=== PATIENT | male | born 1940 | race Caucasian/White ===

== ENCOUNTER 2017-02-13 02:11 | Inpatient (IN) | payer OTHER, MEDICARE ==
[~2017-02-13] VITALS: Ht 170.2 cm; Wt 91.3 kg
[2017-02-13 03:17] VITALS: BP_SYST 126; BP_SYST 162; BP_DIAS 101; BP_DIAS 91; PULSE 83; TEMP 36.3; O2SAT 95; Ht 170.2 cm; Wt 91.3 kg
[2017-02-13] MEDS ORDERED: OLME40TA30 PO (03:24)
[2017-02-13] MEDS ORDERED: MAGNESIUM HYDROXIDE SUSP 30 ML UDC PO PRN (04:00)
[2017-02-13] MEDS ORDERED: ALUMINUM/MAGNESIUM/SIMETH (MAALOX MAX) 30 ML UDC PO PRN (04:00)
[2017-02-13] MEDS ORDERED: POLYETHYLENE (MIRALAX) 17 GM PACK PO PRN (04:00)
[2017-02-13] MEDS ORDERED: ONDANSETRON INJ 2 MG/ML 2 ML VIAL IV PRN (04:00)
[2017-02-13] MEDS ORDERED: ZOLPIDEM TARTRATE 5 MG TAB PO PRN (04:00)
[2017-02-13] MEDS ORDERED: MoRPHine SULFATE 2 MG/ML CARP IV PRN (04:00)
[2017-02-13] MEDS ORDERED: ACETAMINOPHEN 325 MG TAB PO PRN (04:00)
[2017-02-13] MEDS ORDERED: NITROGLYCERIN 0.4 MG SL PER TAB CHARGE SL PRN (04:00)
[2017-02-13] MEDS ORDERED: ALBUTEROL 0.083% NEBU SOLN 3 ML VIAL INH PRN (04:15)
--- NOTE | 2017-02-13 04:39 | History and Physical ---
History & Physical Date & Time of Service: Feb 13, 2017 at 04:14 Chief Complaint: Acute Sob,Elevated Troponin Primary Care Physician: Eliot Alves History of Present Illness Source: patient 76 y/o M Hx HTN, CKD 3, PE 9 months prior - treated with Xarelto for 6 mo. Pt presented to [facility] for progressive SOB. He had URI symptoms this week including a cough and then developed acutely worse SOB. He denies CP, N/V , palpitations or lightheadedness. Earlier in the day he had blood streaked sputum. Initial labs obtained at [place] reveled an elevated troponin. The pt was slated to be transferred to [place] for evaluation by a production supv however his insisted that he come to [facility]. Although a PE is certainly in the differential, the pts suffers from CKD and a CTA was not obtained. The pt received full-dose Lovenox at [facility]. His hemoptysis appears to have resolved regardless. Past Medical/Surgical History 1) DVT/PE 06/24 - this was attributed to a combination of a procedure performed on his R knee and a subsequent flight to [place]. 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 CKD is likely stage 3 although we do not have a baseline creatinine. 3) HTN Family History Father with Hx of CABG at age 70 and VT at 86 Social History Smoking Status: Never Smoker Alcohol Use: socially (Wine) Allergies Coded Allergies: Coffee (Verified Allergy, Unknown, SHORTNESS OF BREATH, 02/13/17) nasal congestion Home Medications Scheduled Olmesartan/Hctz (Benicar Hct 40/12.5), 1 TAB PO DAILY Review of Systems Constitutional: No fever, No chills, No sweats Eyes: No worsening of vision, No eye pain ENT: No hearing loss, No unusual epistaxis, No nasal symptoms Respiratory: + cough, + sputum, + shortness of breath, + dyspnea on exertion, + dyspnea at rest, No wheezing Cardiovascular: No chest pain, No orthopnea, No PND Abdomen: No pain, No nausea, No vomiting Musculoskeletal: No joint pain Genitourinary - Male: No hematuria, No dysuria, No urinary frequency, No urinary urgency Neurologic: No memory loss, No paralysis, No weakness Psychiatric: No depression symptoms Endocrine: No fatigue Hematologic / Lymphatic: No abnormal bleeding/bruising Integumentary: No rash Allergic / Immunologic: No environmental allergies Physical Exam Vital Signs Date Time Temp Pulse Resp B/P (MAP) Pulse Ox O2 Delivery O2 Flow Rate FiO2 02/13/17 03:17 36.3 83 18 126/91 95 Nasal Cannula 3.0 General Appearance: WD/WN, no apparent distress Head: normocephalic Eyes: normal inspection, PERRL, EOMI ENT: normal ENT inspection, pharynx normal Neck: supple, no JVD Respiratory/Chest: chest non-tender, lungs clear, normal breath sounds Cardiovascular: regular rate, rhythm, no edema, no gallop, no JVD, no murmur, normal peripheral pulses Abdomen/GI: normal bowel sounds, non tender Back: normal inspection, no CVA tenderness Extremities/Musculoskelatal: normal inspection, no calf tenderness, normal capillary refill, no pedal edema, normal range of motion 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 Pt presented to [facility] for progressive SOB. He had URI symptoms this week including a cough and then developed acutely worse SOB. He denies CP, N/V , palpitations or lightheadedness. Earlier in the day he had blood streaked sputum. Initial labs obtained at [facility] reveled an elevated troponin. The pt was slated to be transferred to [place] for evaluation by a production supv however his insisted that he come to [facility]. Although a PE is certainly in the differential, the pts suffers from CKD and a CTA was not obtained. The pt received full-dose Lovenox at [facility]. His hemoptysis appears to have resolved regardless. 1) SOB - elevated troponin - Differential includes PE vs NSTEMI - pt placed on full-dose Lovenox, ASA, statin and echo ordered to evaluate for strain or wall motion abnormalities. We have additionally ordered a VQ scan. His renal function is such that a CTA could be obtained if it is positively needed. 2) HTN - cont HCTZ/Benicar 3) Hemoptysis - supports diagnosis of PE - resolved earlier in day - consider pulm consult with recurrence. Full code - full dose Lovenox Total time for this admit including review of labs, meds, EKG - discussion with pt and ER attending at [facility] - 38 min Level of Care Telemetry Advanced Directives Existing Living Will: No Existing Power of Account Relationship Manager: No Resuscitation Status FULL RESUSCITATION VTE Prophylaxis VTE Risk Assessment Done? Y/N: Yes Risk Level: High Given or contraindicated: Enoxaparin (Lovenox)SQ
[2017-02-13] MEDS ORDERED: D5NSS + 20MEQ KCL 1,000 ML IV SCH (05:15)
[2017-02-13 06:36] LABS: HEMATOCRIT 41.2 % (42-52); MEAN CELL VOLUME 90.5 fL (80-100); MEAN CORPUSCULAR HEMOGLOBIN 31.2 pg (25-34); MEAN CORPUSCULAR HGB CONC 34.5 g/dl (32-36); MEAN PLATELET VOLUME 9.3 fL (7.4-10.4); PLATELET COUNT 169 K/uL (130-400); RED BLOOD COUNT 4.55 M/uL (4.7-6.1); WHITE BLOOD COUNT 9.71 K/uL (4.8-10.8)
[2017-02-13 06:51] LABS: INR 1.1 (0.9-1.1); PROTHROMBIN TIME (PATIENT) 12.1 SECONDS (9.0-12.0)
[2017-02-13 07:18] LABS: BUN/CREATININE RATIO 19.1 (10-20); CREATININE 1.4 mg/dl (0.60-1.40); POTASSIUM 3.5 mmol/L (3.5-5.1)
[2017-02-13 08:00] VITALS: BP 141/89; PULSE 72; TEMP 36.7; TEMP 37.7; O2SAT 95
[2017-02-13] MEDS: ASPIRIN 81 MG ECTAB PO SCH (08:04)
[2017-02-13] MEDS: ATORVASTATIN 40 MG TAB PO SCH (08:05)
[2017-02-13] MEDS: OLMESARTAN MEDOXOMIL 20 MG TAB PO SCH (08:05)
[2017-02-13] MEDS: HYDROCHLOROTHIAZIDE 25 MG TAB PO SCH (08:05)
[2017-02-13] MEDS ORDERED: HEPARIN IV LOW DOSE NO BOLUS SCH (08:30)
[2017-02-13 09:02] LABS: HEMATOCRIT 40.4 % (42-52); MEAN CORPUSCULAR HEMOGLOBIN 30.8 pg (25-34); MEAN PLATELET VOLUME 9.3 fL (7.4-10.4); PLATELET COUNT 154 K/uL (130-400); RED BLOOD COUNT 4.39 M/uL (4.7-6.1); WHITE BLOOD COUNT 8.54 K/uL (4.8-10.8)
[2017-02-13 09:15] LABS: INR 1.1 (0.9-1.1); PARTIAL THROMBOPLASTIN RATIO 1.2; PROTHROMBIN TIME (PATIENT) 11.9 SECONDS (9.0-12.0)
[2017-02-13 09:27] LABS: MEAN CORPUSCULAR HGB CONC 33.4 g/dl (32-36)
[2017-02-13] MEDS ORDERED: ENOXAPARIN 1 MG/KG SQ SCH (10:00)
[2017-02-13 12:00] VITALS: BP 157/89; PULSE 80; TEMP 36.7; O2SAT 92
[2017-02-13] MEDS ORDERED: ENOXAPARIN 100 MG/1ML SYR SQ SCH (12:00)
[2017-02-13] MEDS ORDERED: HEPARIN 25,000 UNIT/500ML D5W 500 ML IV PRN (12:00)
--- NOTE | 2017-02-13 13:42 | Progress Note ---
Subjective Date of Service: Feb 13, 2017. Subjective Pt evaluation today including: conversation w/ patient, conversation w/ family , physical exam, chart review, lab review, review of studies, conversation w/ tour consultant, review of inpatient medication list cough with yellow/white sputum, some times was red,, cough/wheezing when deep breathing, denies chest pain Review of Systems Constitutional: No fever, No chills, No sweats, No weight loss, No weakness, No fatigue, No problem reported Eyes: No worsening of vision, No eye pain, No redness, No discharge, No diplopia ENT: No hearing loss, No unusual epistaxis, No nasal symptoms, No sore throat, No tinnitus, No dental problems, No trouble swallowing Respiratory: + cough, + shortness of breath, + dyspnea on exertion, No sputum, No wheezing, No dyspnea at rest, No hemoptysis Cardiac: No chest pain, No orthopnea, No PND, No edema, No claudication, No palpitations Abdomen: No pain, No nausea, No vomiting, No diarrhea, No constipation Musculoskeletal: No joint pain, No muscle pain, No swelling, No calf pain Male : No dysuria, No urinary frequency, No incontinence, No nocturia more than once/night, No slowing stream, No hematuria Neurologic: No memory loss, No paralysis, No weakness, No numbness/tingling, No vertigo, No balance problems Psychiatric: No depression symptoms, No anhedonism, No anxiety, No insomnia, No substance abuse Heme: No abnormal bleeding/bruising, No clotting problems, No swollen lymph nodes, No night sweats Endo: No fatigue, No excessive thirst, No excessive urination Skin: No rash, No itch, No new/changing skin lesions, No color change, No bleeding Objective Vital Signs Date Time Temp Pulse Resp B/P (MAP) Pulse Ox O2 Delivery O2 Flow Rate FiO2 02/13/17 04:00 Nasal Cannula 4.0 02/13/17 03:17 36.3 83 18 126/91 95 Nasal Cannula 3.0 Physical Exam General Appearance: WD/WN, no apparent distress Eyes: normal inspection, PERRL, EOMI, sclerae normal ENT: normal ENT inspection, hearing grossly normal, pharynx normal Neck: supple, no adenopathy, thyroid normal, no JVD, no carotid bruits, trachea midline Respiratory/Chest: chest non-tender, lungs clear, normal breath sounds, no respiratory distress, no accessory muscle use, + decreased breath sounds, + rales, + wheezing Cardiovascular: regular rate, rhythm, no edema, no gallop, no JVD, no murmur Abdomen: normal bowel sounds, non tender, soft, no organomegaly, no pulsatile mass Extremities: normal range of motion, non-tender, normal inspection, no pedal edema, no calf tenderness, normal capillary refill, pelvis stable Neurologic/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: 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 as tested, no motor/sensory deficits, alert, normal mood/affect, oriented x 3 Skin: normal color, warm/dry, no rash Lymphatic: no adenopathy Laboratory Results Last 24 Hours Test 02/13/17 06:18 02/13/17 08:55 02/13/17 12:15 White Blood Count 9.71 K/uL 8.54 K/uL Red Blood Count 4.55 M/uL 4.39 M/uL Hemoglobin 14.2 g/dL 13.5 g/dL Hematocrit 41.2 % 40.4 % Mean Corpuscular Volume 90.5 fL 92.0 fL Mean Corpuscular Hemoglobin 31.2 pg 30.8 pg Mean Corpuscular Hemoglobin Concent 34.5 g/dl 33.4 g/dl RDW Standard Deviation 43.5 fL 45.4 fL RDW Coefficient of Variation 13.2 % 13.4 % Platelet Count 169 K/uL 154 K/uL Mean Platelet Volume 9.3 fL 9.3 fL Prothrombin Time 12.1 SECONDS 11.9 SECONDS Prothromb Time International Ratio 1.1 1.1 Sodium Level 145 mmol/L Potassium Level 3.5 mmol/L Chloride Level 113 mmol/L Carbon Dioxide Level 24 mmol/L Anion Gap 8.0 mmol/L Blood Urea Nitrogen 27 mg/dl Creatinine 1.40 mg/dl Est Creatinine Clear Calc Drug Dose 50.5 ml/min Estimated GFR () 57.0 Estimated GFR (Non- 49.1 BUN/Creatinine Ratio 19.1 Random Glucose 103 mg/dl Calcium Level 8.0 mg/dl Troponin I 0.598 ng/ml 0.386 ng/ml Activated Partial Thromboplast Time 32.4 SECONDS Partial Thromboplastin Ratio 1.2 Assessment and Plan 76 y/o M transferred form [facility] for progressive SOB. He had URI symptoms this week including a cough and then developed acutely worse SOB, asso with blood streaked sputum. initial labs obtained at [place] reveled an elevated troponin. The pt was slated to be transferred to [place] for evaluation by a mine safety director however his insisted that he come to [facility]. Although a PE is certainly in the differential, the pts suffers from CKD and a CTA was not obtained. The pt received full-dose Lovenox at [facility]. His hemoptysis appears to have resolved regardless. Hx HTN, CKD 3, PE 9 months prior - treated with Xarelto for 6 mo. possible PE with SOB - elevated troponin - Differential includes PE vs NSTEMI hx of DVT and PE 9 months prior, treated with Xarelto for 6 mo. pt placed on full-dose Lovenox, this am I changed to Heparin drip while waiting for the results of V/Q scan hank lower ext doppler ordered to rule out DVT His renal function is such that a CTA could increased risks of renal failure, pulm consult HTN - cont HCTZ/Benicar Hemoptysis - supports diagnosis of PE - resolved earlier in day Full code -heparin for DVT px d/w and RN Continued [facility] stay due to: multiple IV medications needed Discharge planning: home
--- NOTE | 2017-02-13 14:58 | DIAGNOSTIC IMAGING REPORT ---
CHEST 2 VIEWS ROUTINE CLINICAL HISTORY: Shortness of breath. COMPARISON STUDY: No previous studies for comparison. FINDINGS: There is a 5.6 cm right perihilar airspace opacity. In the proper clinical setting this could represent a round pneumonia. Other pathologic entities cannot be excluded and clinical and imaging follow-up is recommended. There is mild right hilar prominence which may represent reactive adenopathy. There are no pleural effusions. The left lung is clear.[ IMPRESSION: Nonspecific 5.6 cm right perihilar airspace opacity. While this could represent a round pneumonia, other pathologic entities cannot be excluded. There is associated right hilar prominence. Clinical and imaging follow-up is recommended. Electronically signed by: Didier Oliver M.D. 02/13/2017 2:57 PM Dictated Date/Time: 02/13/2017 2:54 PM
--- NOTE | 2017-02-13 14:58 | DIAGNOSTIC IMAGING REPORT ---
NUCLEAR MEDICINE VENTILATION/PERFUSION SCAN CLINICAL HISTORY: Dyspnea COMPARISON: None TECHNIQUE: For the ventilation portion of this exam, 31.3 mCi of DTPA was inhaled at 1:45 PM. Immediately following inhalation, imaging of the chest was carried out in the anterior, posterior, left lateral, right lateral, LPO, RPO, JAD and ANTHONY projections. For the perfusion portion of exam, 5 mCi of technetium 99m MAA was injected IV at 2:42 PM. Immediately following injection, imaging of the chest was carried out in the same projections. FINDINGS: Multiple ventilation/perfusion mismatches throughout both hemithoraces. The appearance is consistent with a high probability of pulmonary embolus. IMPRESSION: High probability of pulmonary embolus. Electronically signed by: Ye Quigley M.D. 02/13/2017 2:57 PM Dictated Date/Time: 02/13/2017 2:50 PM
--- NOTE | 2017-02-13 15:01 | ECHOCARDIOGRAM REPORT ---
*NOTICE TO RECEIVING REPUBLICAN AGENCY This information is strictly Confidential and protected under [place] law. [place] law prohibits you from making any further disclosure of this information unless further disclosure is expressly permitted by the written consent of the person to whom it pertains or is authorized by law. A general authorization for the release of medical or other information is not sufficient for this purpose. Hospital accepts no responsibility if the information is made available to any other person, INCLUDING THE PATIENT. Interpretation Summary * Name: NOREEN JUDGE Study Date: 02/13/2017 10:19 AM BP: 126/91 mmHg * [facility] HR: 83 * : 1940 (M/d/yyyy) Gender: Male Height: 67 in * Age: 76 yrs Ethnicity: CA Weight: 206 lb * Ordering Physician: Jose Calvert * Referring Physician: Self, Referred * Performed By: Uyen Nolen RDCS * * Reason For Study: CHF * BSA: 2.0 m2 * Normal left ventricular systolic function. * Mild concentric left ventricular hypertrophy. * Left ventricular diastolic dysfunction. * Mild - moderate right atrial dilatation. * Mild tricuspid regurgitation. * Severe pulmonary hypertension. * Mild right ventricular dilatation with moderate right ventricular systolic dysfunction. * Trace mitral regurgitation. * Mild aortic root dilatation. * -- Conclusions -- * Aortic valve sclerosis moderate, without significant aortic valvular stenosis. Procedure Details * A contrast injection of Definity was performed to improve assessment of LV function. * Contrast was injected into an intravenous site in the right arm. * One vial of Definity ultrasound contrast was diluted in normal saline to a total volume of 10 ml. A total of '2' ml of solution was administered during imaging. * Lot # [id number] of Definity utilized for procedure. * Expiration date FEB 24. * The attending nurse who injected the contrast agent was NINO DARNELL RN. Left Ventricle * The left ventricle is normal in size. * There is mild concentric left ventricular hypertrophy. * Ejection Fraction = 60-65%. * Left ventricular systolic function is normal. * A full diastolic examination was done with clinical findings of Class I diastolic dysfunction. * The left ventricular wall motion is normal. * No regional wall motion abnormalities noted. * Flattened septum is consistent with RV pressure overload. Right Ventricle * The right ventricle is mildly dilated. * The right ventricular systolic function is moderately reduced. Atria * The left atrial size is normal. * The right atrium is mild to moderately dilated. * No ASD detected; PFO is not assessed. Mitral Valve * The mitral valve is normal. * There is mild mitral annular calcification. * There is no mitral valve stenosis. * There is trace mitral regurgitation. Tricuspid Valve * The tricuspid valve is normal. * There is no tricuspid stenosis. * There is mild tricuspid regurgitation. * Right ventricular systolic pressure is elevated at >60mmHg. Aortic Valve * Aortic valve sclerosis moderate, without significant aortic valvular stenosis. * The aortic valve is trileaflet. * No aortic regurgitation is present. Pulmonic Valve * The pulmonic valve is not well visualized. * The pulmonary valve is inadequately visualized, but the Doppler data is adequate for interpretation. * There is no pulmonic valvular stenosis. * There is no significant pulmonary regurgitation. Great Vessels * The aortic root is normal size. Pericardium/Pleural * There is no pericardial effusion. Right Ventricle * [place] contracts normally. RV free wall severely hypokinetic to akinetic. Great Vessels * Normal inferior vena cava diameter and respiratory variation suggests normal central venous pressure. MMode 2D Measurements and Calculations IVSd 1.2 cm IVSs 1.6 cm LVIDd 3.9 cm LVIDs 2.5 cm LVPWd 1.2 cm LVPWs 1.9 cm IVS/LVPW 0.99 FS 36.8 % EDV(Teich) 65.8 ml ESV(Teich) 21.5 ml EF(Teich) 67.3 % EDV(cubed) 59.1 ml ESV(cubed) 14.9 ml EF(cubed) 74.7 % % IVS thick 36.2 % % LVPW thick 64.1 % LV mass(C)d 152.9 grams LV mass(C)dI 74.7 grams/m\S\2 LV mass(C)s 165.5 grams LV mass(C)sI 80.8 grams/m\S\2 SV(Teich) 44.2 ml SI(Teich) 21.6 ml/m\S\2 SV(cubed) 44.2 ml SI(cubed) 21.6 ml/m\S\2 Ao root diam 4.2 cm Ao root area 13.7 cm\S\2 LA dimension 3.5 cm LA/Ao 0.84 LVAd ap4 34.2 cm\S\2 LVLd ap4 9.9 cm EDV(MOD-sp4) 97.0 ml LVAs ap4 20.0 cm\S\2 LVLs ap4 8.7 cm ESV(MOD-sp4) 38.4 ml EF(MOD-sp4) 60.4 % LVAd ap2 32.9 cm\S\2 LVLd ap2 10.3 cm EDV(MOD-sp2) 90.7 ml LVAs ap2 18.4 cm\S\2 LVLs ap2 8.5 cm ESV(MOD-sp2) 35.3 ml EF(MOD-sp2) 61.1 % SV(MOD-sp4) 58.6 ml SI(MOD-sp4) 28.6 ml/m\S\2 SV(MOD-sp2) 55.4 ml SI(MOD-sp2) 27.1 ml/m\S\2 Doppler Measurements and Calculations MV E max elsy 54.8 cm/sec MV A max elsy 100.4 cm/sec MV E/A 0.55 MV dec time 0.23 sec Ao V2 max 161.8 cm/sec Ao max PG 10.5 mmHg Ao max PG (full) 4.7 mmHg LV V1 max PG 5.8 mmHg LV V1 max 120.3 cm/sec TR max elsy 397.6 cm/sec
[2017-02-13 16:00] VITALS: BP 147/87; PULSE 77; TEMP 36.9; O2SAT 95
--- NOTE | 2017-02-13 16:35 | Pulmonary Consultation ---
History General Date of Service: Feb 13, 2017. Stated Complaint: Acute Sob,Elevated Troponin HPI The patient is a 76 year old male who presents to [facility] with complaints of Acute Sob,Elevated Troponin. The patient's primary care provider is Eliot Alves. 76 y/o M with a Mph: HTN, CKD 3, and a provoked DVT 06/2016 which was treated for 6 months with Xarelto. The patient presented to [facility] for progressive shortness of breath, generalized fatigue and URIs type symptoms with a previous [address] [facility] he was noted to have hemoptysis and mildly elevated troponin along with chronic renal insufficiency. Patient has been transferred to [facility] for higher level of care. The patient notes his previous diagnosis of pulmonary embolism a year ago was determined to be provoked secondary to a knee injection with associated 8 hour travel time. There was no definitive diagnosis even though it extensive, per the patient, workup was performed to rule out cancer. The patient does not remember the exact nature of the workup at this time. He does note progressive fatigue over the past year but has been able to walk 16 holes of golf and with minimal interruption. Over the past 10 days he notes rhinitis, productive cough with a 24-hour period of hemoptysis. He denies: Weight loss, night sweats, chronic cough, pleurisy or classic cardiac chest pain. Current Work-Up EKG: NSR with 1st degree AV block at a rate of 73 WBC: 9K H/H: 14/40 PLT: 154K INR: 1.1 PT: 11.9 aPTT: 32.4 BUN/Cr: 27/1.40 Troponin I: 0.5980.386 CXR (02/13/17) 5.6cm RLL opacification vs. mass V/Q scan (02/13/2017) high probability for PE Historian: patient, family, EMS Review of Systems Constitutional: reports: as stated in HPI Eyes: reports: no symptoms ENT: reports: no symptoms Cardiovascular: reports: no symptoms Respiratory: reports: as stated in HPI Gastrointestinal: reports: no symptoms Genitourinary - Male: reports: no symptoms Musculoskeletal: reports: no symptoms Integumentary: reports: no symptoms Neurologic: reports: no symptoms Psychiatric: reports: no symptoms Endocrine: no symptoms Hematologic / Lymphatic: no symptoms All Other Symptoms All Other Systems: Reviewed and Negative Past Medical History Past Medical History: 1) Provoked DVT/PE (06/24) - this was attributed to a combination of a procedure performed on his R knee and a subsequent flight to [place]. He was treated with Xarelto fr 6 months 2) CKD questionable functional R kidney due to obstructive calculi. CKD is likely stage 3 although we do not have a baseline creatinine. 3) HTN Past Surgical History: no surgical history Family History Father with Hx of CABG at age 70 and [place] at 86 Social History Smoking Status: Never Smoker Alcohol Use: socially (Wine) Smoking Status: Never Smoker Alcohol: socially Marital status: Occupational Status: employed Allergies Coded Allergies: Coffee (Verified Allergy, Unknown, SHORTNESS OF BREATH, 02/13/17) nasal congestion Current Medications Reported Home Medications Medications Dose Route/Sig Max Daily Dose Days Date Category Benicar Hct 40/12.5 (Olmesartan/HCTZ) Tab 1 Tab PO DAILY 02/13/17 Reported Physical Physical Exam Vital Signs: Date Time Temp Pulse Resp B/P (MAP) Pulse Ox O2 Delivery O2 Flow Rate FiO2 02/13/17 12:00 36.7 80 22 157/89 (111) 92 Nasal Cannula 3.0 02/13/17 12:00 Nasal Cannula 2.0 02/13/17 08:00 Nasal Cannula 2.0 02/13/17 08:00 36.7 72 22 141/89 (106) 95 Nasal Cannula 2.0 02/13/17 04:00 Nasal Cannula 4.0 02/13/17 03:17 36.3 83 18 126/91 95 Nasal Cannula 3.0 General Appearance: WELL-APPEARING, NO APPARENT DISTRESS Head: NORMOCEPHALIC Eyes: PERRLA, NO DISCHARGE, EOMI, SCLERAE NORMAL ENT: NORMAL EAR EXAM, NORMAL NASAL EXAM, NORMAL MOUTH EXAM, NORMAL THROAT EXAM , NORMAL DENTAL EXAM, NORMAL SINUS EXAM Neck: NORMAL RANGE OF MOTION, NO TENDERNESS, TRACHEA MIDLINE, NO STRIDOR Respiratory: BREATH SOUNDS NORMAL, CLEAR TO AUSCULTATION, CLEAR TO PERCUSSION Cardiovasular: REGULAR RATE/RHYTHM, NORMAL S1S2, NO M/G/R, NO MURMUR, NO GALLOP , NO RUB, NO JVD Abdomen: NON TENDER, NORMAL BOWEL SOUNDS, NO REBOUND, NO MASSES, NO GUARDING, NO ORGANOMEGALY Genitourinary - Male: EXTERNAL GENITALIA NORMAL Back: NORMAL INSPECTION, NO MIDLINE TENDERNESS, NO CVA TENDERNESS, NO PARAVERTEBRAL TTP Upper Extremities: NO EDEMA, NO DEFORMITY, NORMAL ROM Lower Extremities: NO EDEMA, NO DEFORMITY, NORMAL ROM Pulses: carotid (R) (2+), carotid (L) (2+), posterior tibial (R), posterior tibial (L) (2+) Neuro: ALERT, ORIENTED x 3, NORMAL MOTOR EXAM, NORMAL SENSATION, NORMAL CEREBELLAR EXAM, NORMAL SPEECH Reflexes: biceps (R) (2+), bicpes (L) (2+), patellar (R) (2+), patellar (L) (2+ ) Babinski Testing: right (downgoing), left (downgoing) Psychiatric: NORMAL AFFECT, NO SUICIDAL IDEATION Diagnostics Labs Results Past 24 Hours Test 02/13/17 06:18 02/13/17 08:55 02/13/17 12:15 02/13/17 15:23 Range/Units White Blood Count 9.71 8.54 4.8-10.8 K/uL Red Blood Count 4.55 4.39 4.7-6.1 M/uL Hemoglobin 14.2 13.5 14.0-18.0 g/dL Hematocrit 41.2 40.4 42-52 % Mean Corpuscular Volume 90.5 92.0 80-100 fL Mean Corpuscular Hemoglobin 31.2 30.8 25-34 pg Mean Corpuscular Hemoglobin Concent 34.5 33.4 32-36 g/dl RDW Standard Deviation 43.5 45.4 36.4-46.3 fL RDW Coefficient of Variation 13.2 13.4 11.5-14.5 % Platelet Count 169 154 130-400 K/uL Mean Platelet Volume 9.3 9.3 7.4-10.4 fL Prothrombin Time 12.1 11.9 9.0-12.0 SECONDS Prothromb Time International Ratio 1.1 1.1 0.9-1.1 Sodium Level 145 136-145 mmol/L Potassium Level 3.5 3.5-5.1 mmol/L Chloride Level 113 98-107 mmol/L Carbon Dioxide Level 24 21-32 mmol/L Anion Gap 8.0 3-11 mmol/L Blood Urea Nitrogen 27 7-18 mg/dl Creatinine 1.40 0.60-1.40 mg/dl Est Creatinine Clear Calc Drug Dose 50.5 ml/min Estimated GFR () 57.0 Estimated GFR (Non- 49.1 BUN/Creatinine Ratio 19.1 10-20 Random Glucose 103 70-99 mg/dl Calcium Level 8.0 8.5-10.1 mg/dl Troponin I 0.598 0.386 0-0.045 ng/ml Activated Partial Thromboplast Time 32.4 21.0-31.0 SECONDS Partial Thromboplastin Ratio 1.2 Microbiology Results 02/13/17 MRSA DNA Surveillance Screen - Final, Complete Specimen Negative for MRSA by DNA Probe Diagnostic Radiology CXR (02/13/17) 5.6cm RLL opacification vs. 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 This along with his chronic fatigue and recent hemoptysis and abnormal chest x-ray placement high risk for possible TB. Patient was placed in respiratory isolation at this time and a.m. sputum samples will be sent off. #2 Abnormal CXR: Patient has an abnormal chest x-ray with right lower lobe infiltrative process. At this time we'll obtain noncontrast CT of the chest for further evaluation. #3 Pulmonary Embolism: Patient has history of pulmonary, high probability V/Q scan and current hemoptysis. At this time I agree with full dose Lovenox. Believe at this time we need to review the patient's recent cancer workup. Occult cancers in male patient's with thrombo-embolic disease are most likely from the lung 26%, prostate 17% or colorectal region at 10%. After getting his previous records were reviewed for these high risk cancers.
--- NOTE | 2017-02-13 18:42 | DIAGNOSTIC IMAGING REPORT ---
BILATERAL LOWER EXTREMITY VENOUS DOPPLER CLINICAL HISTORY: Acute shortness of breath. COMPARISON STUDY: No previous studies for comparison. TECHNIQUE: Sonography of the deep venous system of the bilateral lower extremities was performed. Compression and augmentation were evaluated. FINDINGS: There is extensive deep venous thrombus within the right lower extremity with thrombus within the right common femoral, femoral, popliteal, posterior tibial, peroneal and anterior tibial veins. Several these vessels are expanded. Thrombus within the femoral and popliteal veins appears occlusive. There is no deep venous thrombus within the left lower extremity. IMPRESSION: 1. Extensive deep venous thrombus within the right lower extremity, as described above. 2. No deep venous thrombus within the left lower extremity. Electronically signed by: Collin Lee M.D. 02/13/2017 6:41 PM Dictated Date/Time: 02/13/2017 6:39 PM
--- NOTE | 2017-02-13 18:53 | CARDIOLOGY CONSULTATION ---
DATE OF CONSULTATION: 02/13/2017 PRIMARY PHYSICIAN: Eliot Alves MD REFERRING PHYSICIAN: Jose Calvert MD ATTENDING PHYSICIAN: Chilango Zavala MD CONSULTATION: Jhony Mehta MD HISTORY OF PRESENT ILLNESS: The patient is a 76-year-old white male. He denies any prior history of heart disease. He does have a history of sustaining a deep venous thrombosis. He states to me that it occurred in March 2016. He had received a platelet injection in his right knee. He then took a plane trip. Thereafter, he developed a deep venous thrombosis. He states at that time he had no pulmonary complaints. Pulmonary embolus was subsequently diagnosed. He states he had no symptoms at that time referable to his respiratory and pulmonary status. He was treated with Xarelto for 6 months. He states he was then in his usual state of health until approximately 3 weeks ago. Approximately 3 weeks ago, he began to notice new onset dyspnea on exertion. This could occur after walking up one flight of stairs. At other times, he could exercise on an elliptical machine at a slow pace without any difficulty. Normally he exercises vigorously on his elliptical machine for up to 1 hour. For the past 3 weeks he has been unable to exercise at his usual intensity on the elliptical machine. He did walk 18 holes of golf 4 days ago. He was able to do this without any pulmonary complaints. He has had no anginal type complaints with exertion in regards to chest, shoulder, neck, arm, throat, or back discomfort. No anginal pains with exertion or at rest. He denies orthopnea or PND. For the past week and a half he has had upper respiratory symptoms. He first developed a mild sore throat. He also had sensation of pressure in his right ear. He then developed a cough. The cough has been productive of green and yellowish sputum. It is occasionally blood tinged. No chills. He thinks he may have had a fever; however, he did not take his temperature. He states that last evening after walking up his stairs at his home, he developed onset of severe dyspnea. He felt as if he could not breathe. He describes his breathing as sounding like "Darth Anthony." He describes audible rhonchi and wheezing. With rest his symptoms improved. Emergency medical services were summoned. He states that by the time they arrived, he was no longer short of breath. He was taken to [facility]. He was subsequently transferred to [facility]. He states that since admission he has not had any dyspnea. He has not heard himself have any wheezing. He continues to have a cough productive of a yellowish-green sputum. There is still occasional blood in the sputum. He produced such a sputum in my presence. He denies any chest pain. No other anginal type pains. With prolonged coughing episodes he did have sensation of lightheadedness. No syncope. He states he has chronic peripheral edema. This is in his lower legs. This has been present for the past several months. His deep venous thrombosis was in his right lower leg. He states that his current peripheral edema is dependent in nature. It resolves completely overnight. PAST MEDICAL HISTORY: 1. Deep venous thrombosis as above. 2. History of obstructing ureteral stone. Removed surgically. 3. Hypertension. 4. No history of diabetes mellitus. 5. He denies history of dyslipidemia. However, he states that a recent lipid profile was "borderline" 6. 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 7. Chronic kidney disease. MEDICATIONS: This morning were enoxaparin 1 mg/kg subQ q. 12 hours, aspirin 81 mg daily, atorvastatin 40 mg daily, olmesartan 20 mg daily, HCTZ 12.5 mg daily, and several p.r.n. medications. ALLERGIES AND ADVERSE DRUG REACTIONS: No known drug allergies. ADVERSE REACTION to AMLODIPINE MANIFESTED BY SEVERE EDEMA OF LEGS. SOCIAL HISTORY: The patient is . 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 Two children. He has never smoked cigarettes. He occasionally uses alcohol. FAMILY HISTORY: He states to me that his father underwent CABG surgery at age 80. REVIEW OF SYSTEMS: 1. As above. 2. The patient states that he ran 5-10 miles a day for up to 25 years. For the past 10 years, he has exercised on an elliptical machine on a daily basis. As stated above, recently he has had a decreased intensity of his exercise activities. 3. Arthralgias chronically of his shoulders and knees. 4. No urinary complaints other than occasional nocturia. Also, a slight decrease in strength of urine stream compared to years ago. 5. No GI complaints. 6. No bleeding complaints other than the blood in his sputum. 7. Recent rhinitis. 8. No skin rash complaints. 9. No cerebrovascular or peripheral vascular complaints suggestive of arterial insufficiency. PHYSICAL EXAMINATION: GENERAL: The patient was examined by me this morning in his intensive care unit room. VITAL SIGNS: Today at 8:00 a.m. revealed oral temperature of 36.7, pulse 72, blood pressure 141/89, pulse oximetry 95%. GENERAL APPEARANCE: Showed him to be in no distress. HEAD: Normal. EYES: Pupils are equal and round. Anicteric. Conjunctivae normal. No xanthelasma. NECK: No jugular venous distention. Carotids 2/2 bilaterally. Normal upstroke. No bruits. LUNGS: Normal respiratory effort. Scant rales right base. No rhonchi or wheezes. HEART: PMI normal. No lifts or heaves. Regular rate and rhythm. S1, S2 normal. No S3 or S4. ABDOMEN: Soft. Nontender. No palpable masses or organomegaly. EXTREMITIES: Trace pretibial edema bilaterally. No calf tenderness. No cyanosis or clubbing. PULSES: Distal pulses in all extremities palpable. NEUROLOGICAL: Alert and oriented x3. Motor grossly intact. PSYCHIATRIC: Affect is normal. DATA: Electrocardiogram performed this morning and reviewed by me shows normal sinus rhythm at a rate of 73 beats per minute. First-degree AV block with CA interval 236 milliseconds. Inversions in leads 3, aVF, V1-V3. Chest x-ray reviewed by me shows no heart failure. Infiltrate in the right lower lung field. Lung perfusion ventilation scan revealed multiple mismatches throughout both lungs. High probability of pulmonary embolus. Echocardiogram performed this morning and reviewed and interpreted by me showed normal left ventricular systolic function, mild concentric LVH, left ventricular diastolic dysfunction, mild to moderate right atrial dilatation, mild tricuspid regurgitation, severe pulmonary hypertension with estimated pulmonary systolic pressure greater than 60 mmHg, mild right ventricular dilatation, moderate right ventricular systolic dysfunction, trace mitral regurgitation, mild aortic root dilation, aortic valve sclerosis without stenosis. Flattening of the interventricular septum consistent with pressure overload. Normal appearance of the inferior vena cava suggesting a normal central venous pressure. Labs this morning with WBC 9.71, hemoglobin 14.2, hematocrit 41.2, platelet count 169. INR 1.1. PTT was 32.4. Metabolic profile -- sodium 145, potassium 3.5, chloride 113, carbon dioxide 24, BUN 27, creatinine 1.40, random glucose 103. Troponin I's have been 0.598 and 0.386. ASSESSMENT: 1. No anginal type pains. No pain suggestive of myocardial infarction. 2. Elevated troponin I. These are mild elevations. Suspect secondary to right ventricular strain from acute pulmonary emboli. He has evidence of multiple pulmonary emboli on his V-Q scan performed today. He has evidence on echo of moderate right ventricular systolic dysfunction and RV strain. He has significant pulmonary hypertension on today's echocardiogram. 3. Elevated Pro-BNP of 4859 at [facility]. Etiology would be the right ventricular strain. 4. Elevated D-dimer at [facility] of 28.47. The upper limit of normal was 0.49. 5. Nothing to suggest an acute intracoronary process based on symptoms, electrocardiogram, or echo. 6. Chronic kidney disease. Elevated BUN and creatinine on this admission. He appears to be euvolemic on exam. He does have mild peripheral edema which may be secondary to primary venous insufficiency. The edema resolves overnight with elevation of his legs. 7. No evidence of any significant arrhythmias thus far. The patient notes that last night he did have an elevated heart rate documented by his neighbor. His neighbor is a physician. This could certainly have represented sinus tachycardia. 8. The elevated troponin I could have also been secondary to myocardial oxygen supply and demand mismatch. When he felt severely short of breath last night he likely had a low oxygen saturation. This is likely in the presence of an elevated heart rate and elevated blood pressure. 9. Mildly elevated blood pressure today. 10. Multiple pulmonary emboli noted on lung V-Q scan today. 11. Mild first degree atrioventricular block. He is not on any AV araceli blocking medications. This implies intrinsic AV araceli conduction disease. RECOMMENDATIONS: 1. Continue aspirin, atorvastatin, and angiotensin receptor orestes. 2. Treatment for his underlying pulmonary process. In addition to the pulmonary embolus it was also felt that the patient could have tuberculosis. This is being worked up by the hospitalist and pulmonary staff. 3. No further cardiac workup at this time. When the patient is stable from a pulmonary and respiratory standpoint could consider performing a stress test to evaluate for stress induced myocardial ischemia. Clearly, there is no indication for any urgent or emergent cardiac catheterization procedure. In discussion regarding his cardiac status, the patient would first prefer to undergo noninvasive testing for myocardial ischemia. As stated above, would defer this until his respiratory and pulmonary status are stable. The above assessment and recommendations were discussed with Dr. Zavala. Thank you for asking us to see this patient in cardiology consultation. I will be off site tomorrow, February 14. Please contact one of my [facility] colleagues for any cardiology questions or problems. I will be back at [facility] on 02/15/2017.
--- NOTE | 2017-02-13 18:54 | DIAGNOSTIC IMAGING REPORT ---
CT OF THE CHEST WITHOUT IV CONTRAST CLINICAL HISTORY: Abnormal CXR and PE seen on V/Q COMPARISON STUDY: Chest radiograph performed earlier today. CT DOSE: 994.60 mGy.cm TECHNIQUE: Axial images of the chest were obtained without IV contrast. Images were reviewed in the axial, sagittal, and coronal planes. IV contrast was not administered for this examination. FINDINGS: No enlarged axillary, mediastinal or hilar lymph nodes are identified on this unenhanced examination. Mild dilatation of the ascending aorta is noted, measuring 4 cm at the level the main pulmonary artery. Mild cardiomegaly is noted. There is no pericardial effusion. No pneumothorax or pleural effusion is present. There is dense consolidation within the superior segment of the right lower lobe with air bronchograms as well as consolidation within the right middle lobe. Patchy airspace opacities are noted within both upper lobes. There is no cavitation. Central airways are patent. No central obstructing lesion is identified. Mixed lucent and sclerotic lesion within T1 vertebral body extending into the right pedicle, lamina is noted. Severe arthritis of both glenohumeral joints is noted. Visualized portions of the upper abdomen demonstrate symmetric bilateral perinephric infiltration and moderate right renal atrophy. IMPRESSION: 1. Multifocal consolidation within the superior segment of the right lower lobe and right middle lobe with patchy bilateral upper lobe airspace opacities. No central obstructing mass. No cavitation. The findings favor multifocal pneumonia. Radiographic follow to ensure resolution is recommended. 2. No thoracic lymphadenopathy. 3. Mixed lucent and sclerotic lesion within the T1 vertebra. This is indeterminate although may reflect a hemangioma or Paget's. Electronically signed by: Collin Lee M.D. 02/13/2017 6:53 PM Dictated Date/Time: 02/13/2017 6:41 PM
[2017-02-13] MEDS: ENOXAPARIN 100 MG/1ML SYR SQ SCH (19:12)
[2017-02-13 20:00] VITALS: BP 133/94; PULSE 84; TEMP 36.4; O2SAT 92
[2017-02-13 23:59] VITALS: BP 150/103; PULSE 81; TEMP 37.7; O2SAT 92; O2SAT 94
[2017-02-14] VITALS (7 sets, daily range): BP systolic 152–178; BP diastolic 98–111; PULSE 68–84; TEMP 36.5–37.2; O2SAT 92–98
[2017-02-14] MEDS: ENOXAPARIN 100 MG/1ML SYR SQ SCH (05:37)
--- NOTE | 2017-02-14 05:41 | Clinical Documentation Query ---
CLINICAL DOCUMENTATION QUERY 76-y/o male transfer from [facility] for SOB and blood streaked sputum. Found to have multiple PE and question of TB. Troponin's have been positive reflecting ventricular strain. Cardiology notes, "Elevated troponin I. These are mild elevations. Suspect secondary to right ventricular strain from acute pulmonary emboli. He has evidence of multiple pulmonary emboli on his V-Q scan performed today. He has evidence on echo of moderate right ventricular systolic dysfunction and RV strain. In your clinical opinion is this patient being managed for: ( x ) possible "Acute cor pulmonale" in setting of PE treated with anticoagulation and pulmonary support. ( ) Other explanation of clinical findings (Please Explain) ( ) Unable to determine (Please Define) ( ) Need to Discuss ( ) Not Agree The medical record reflects the following clinical findings, treatment, and risk factors. Clinical Indicators: As above. Troponin's 0.598, 0.386, Treatment: Lovenox, ASA, O2, telemetry, cardiology and pulmonology consults Risk Factors: Hx of DVT and PE, Please clarify and document your clinical opinion in the progress notes and discharge summary. Terms such as "probable", "suspected", "likely", "questionable", "possible", or "still to be ruled out" are acceptable. IF IN AGREEMENT, YOU MUST DOCUMENT ABOVE DIAGNOSTIC STATEMENT IN DAILY PROGRESS NOTES AND DISCHARGE SUMMARY. This document is not part of the patient's record. Thank You, Jonathan Bee, DAWOOD [phone]
[2017-02-14 05:57] LABS: PARTIAL THROMBOPLASTIN RATIO 1.2
[2017-02-14] MEDS: HYDROCHLOROTHIAZIDE 25 MG TAB PO SCH (08:15)
[2017-02-14] MEDS: ATORVASTATIN 40 MG TAB PO SCH (08:15)
[2017-02-14] MEDS: ASPIRIN 81 MG ECTAB PO SCH (08:15)
[2017-02-14] MEDS: OLMESARTAN MEDOXOMIL 20 MG TAB PO SCH (08:15)
--- NOTE | 2017-02-14 11:57 | Pulmonology Progress Note ---
Pulmonary Progress Note Date of Service Feb 14, 2017. Attending Dr. Cavanaugh Subjective patient doing well today only notes increased fatigue over the last 6-12 months. No active hemoptysis Objective Patient with no signs of respiratory insufficiency. VS: stable RESP: CTA bilaterally CARD: S1S2 RRR ABD: no M/R/G EXT: no edema CT Thorax reviewed with GGO changes and RLL mass vs. infiltrate Mixed lucent and sclerotic lesion within the T1 vertebra. This is indeterminate although may reflect a hemangioma or Paget's. Assessment & Plan Assessment and Plan 76-year-old gentleman with pulmonary embolism, abnormal CT thorax and possible tuberculosis: #1 Tuberculosis: Relevant travel/work history along with clinic hx patient is moderate to high risk for active TB. Will continue sputum collections but also perform bronchoscopy for TB and infiltrate evaluation. #[address]: Move forward with bronchoscopic evaluation #3 Pulmonary Embolism: Patient has history of pulmonary, high probability V/Q scan and current hemoptysis. At this time I agree with full dose Lovenox. Believe at this time we need to review the patient's recent cancer workup. Occult cancers in male patient's with thrombo-embolic disease are most likely from the lung 26%, prostate 17% or colorectal region at 10%. Will hold anti- coagulation at this time for bronchoscopy and possible biopsies. When done will restart anti-coagulation. Possible move to Rivaroxaban. New meet analysis suggest non-inferior to Lovenox in patient's with cancer in preventing recurrent VTE. Will discuss with Oncology at this time. Data Medications: Current Inpatient Medications Medications (Trade) Dose Ordered Sig/Topher Route Start Time Stop Time Status Last Admin Dose Admin Acetaminophen (Tylenol Tab) 650 mg Q4H PRN PO 02/13/17 04:00 03/15/17 03:59 Al Hydrox/Mg Hydrox/Simethicone (Maalox Max Susp) 15 ml Q4H PRN PO 02/13/17 04:00 03/15/17 03:59 Magnesium Hydroxide (Milk Of Magnesia Susp) 30 ml Q12H PRN PO 02/13/17 04:00 03/15/17 03:59 Zolpidem Tartrate (Ambien Tab) 5 mg HSZ PRN PO 02/13/17 04:00 03/15/17 03:59 Ondansetron HCl (Zofran Inj) 4 mg Q6H PRN IV 02/13/17 04:00 03/15/17 03:59 Nitroglycerin (Nitrostat Tab) 0.4 mg UD PRN SL 02/13/17 04:00 03/15/17 03:59 Morphine Sulfate (MoRPHine SULFATE INJ) 2 mg Q30M PRN IV 02/13/17 04:00 02/27/17 03:59 Aspirin (Ecotrin Tab) 81 mg QAM PO 02/13/17 09:00 03/15/17 08:59 02/14/17 08:15 81 MG Polyethylene (Miralax Powder Packet) 17 gm DAILY PRN PO 02/13/17 04:00 03/15/17 03:59 Atorvastatin Calcium (Lipitor Tab) 40 mg QAM PO 02/13/17 09:00 03/15/17 08:59 02/14/17 08:15 40 MG Albuterol Sulfate (Ventolin 0.083% 2.5MG/3ML Neb) 2.5 mg Q6R PRN INH 02/13/17 04:15 03/15/17 04:14 Olmesartan (Benicar Tab) 20 mg QAM PO 02/13/17 09:00 03/15/17 08:59 02/14/17 08:15 20 MG Hydrochlorothiazide (Hydrochlorothiazide Tab) 12.5 mg DAILY PO 02/13/17 09:00 03/15/17 08:59 02/14/17 08:15 12.5 MG Enoxaparin Sodium (Lovenox Inj) 90 mg Q12H SQ 02/13/17 18:00 03/15/17 16:44 02/14/17 05:37 90 MG Vital Signs: Date Time Temp Pulse Resp B/P (MAP) Pulse Ox O2 Delivery O2 Flow Rate FiO2 02/14/17 11:40 37.0 80 18 153/100 (117) 97 Nasal Cannula 5.0 02/14/17 11:40 Nasal Cannula 5.0 02/14/17 09:40 152/98 (116) 02/14/17 07:30 37.0 68 18 178/111 (133) 94 Nasal Cannula 5.0 02/14/17 07:30 Nasal Cannula 5.0 02/14/17 04:00 92 Nasal Cannula 5.0 02/14/17 04:00 37.2 83 18 158/106 (123) 93 Nasal Cannula 5.0 02/13/17 23:59 37.7 81 18 150/103 (119) 94 Nasal Cannula 5.0 02/13/17 23:59 92 Nasal Cannula 5.0 02/13/17 20:00 36.4 84 18 133/94 (107) 92 Nasal Cannula 3.0 02/13/17 20:00 Nasal Cannula 3.0 02/13/17 16:00 Nasal Cannula 3.0 02/13/17 16:00 36.9 77 18 147/87 (107) 95 Nasal Cannula 3.0 02/13/17 12:00 36.7 80 22 157/89 (111) 92 Nasal Cannula 3.0 02/13/17 12:00 Nasal Cannula 2.0 Laboratory Results: Last 24 Hours Test 02/13/17 12:15 02/13/17 17:15 02/14/17 05:35 Troponin I 0.386 ng/ml Activated Partial Thromboplast Time 30.4 SECONDS Partial Thromboplastin Ratio 1.2
[2017-02-14] MEDS ORDERED: HydrALAZINE HCL 20 MG/ML VIAL IV. PRN (13:30)
--- NOTE | 2017-02-14 13:39 | Progress Note ---
Subjective Date of Service: Feb 14, 2017. Subjective Pt evaluation today including: conversation w/ patient, conversation w/ family , physical exam, chart review, lab review, review of studies, conversation w/ franchise business consultant, review of inpatient medication list Comfortable, in bed, reading book, however oxygen level need to 5 L per min is to maintain pulse ox No other complaint Deny hemoptysis , but still cough have some sputum Report decrease appetite, no night sweats, no recent weight lost Review of Systems Constitutional: + fatigue, No fever, No chills, No sweats, No weight loss, No weakness, No problem reported Eyes: No worsening of vision, No eye pain, No redness, No discharge, No diplopia ENT: No hearing loss, No unusual epistaxis, No nasal symptoms, No sore throat, No tinnitus, No dental problems, No trouble swallowing Respiratory: No cough, No sputum, No wheezing, No shortness of breath, No dyspnea on exertion, No dyspnea at rest, No hemoptysis Cardiac: No chest pain, No orthopnea, No PND, No edema, No claudication, No palpitations Abdomen: No pain, No nausea, No vomiting, No diarrhea, No constipation Musculoskeletal: No joint pain, No muscle pain, No swelling, No calf pain Male : No dysuria, No urinary frequency, No incontinence, No nocturia more than once/night, No slowing stream, No hematuria Neurologic: No memory loss, No paralysis, No weakness, No numbness/tingling, No vertigo, No balance problems Psychiatric: No depression symptoms, No anhedonism, No anxiety, No insomnia, No substance abuse Heme: No abnormal bleeding/bruising, No clotting problems, No swollen lymph nodes, No night sweats Endo: + fatigue, No excessive thirst, No excessive urination Skin: No rash, No itch, No new/changing skin lesions, No color change, No bleeding Objective Vital Signs Date Time Temp Pulse Resp B/P (MAP) Pulse Ox O2 Delivery O2 Flow Rate FiO2 02/14/17 11:40 37.0 80 18 153/100 (117) 97 Nasal Cannula 5.0 02/14/17 11:40 Nasal Cannula 5.0 02/14/17 09:40 152/98 (116) 02/14/17 07:30 37.0 68 18 178/111 (133) 94 Nasal Cannula 5.0 02/14/17 07:30 Nasal Cannula 5.0 02/14/17 04:00 92 Nasal Cannula 5.0 02/14/17 04:00 37.2 83 18 158/106 (123) 93 Nasal Cannula 5.0 02/13/17 23:59 37.7 81 18 150/103 (119) 94 Nasal Cannula 5.0 02/13/17 23:59 92 Nasal Cannula 5.0 02/13/17 20:00 36.4 84 18 133/94 (107) 92 Nasal Cannula 3.0 02/13/17 20:00 Nasal Cannula 3.0 02/13/17 16:00 Nasal Cannula 3.0 02/13/17 16:00 36.9 77 18 147/87 (107) 95 Nasal Cannula 3.0 Physical Exam General Appearance: WD/WN, no apparent distress Eyes: normal inspection, PERRL, EOMI, sclerae normal ENT: normal ENT inspection, hearing grossly normal, pharynx normal Neck: supple, no adenopathy, thyroid normal, no JVD, no carotid bruits, trachea midline Respiratory/Chest: chest non-tender, normal breath sounds, no respiratory distress, no accessory muscle use, + decreased breath sounds Cardiovascular: regular rate, rhythm, no edema, no gallop, no JVD, no murmur Abdomen: normal bowel sounds, non tender, soft, no organomegaly, no pulsatile mass Extremities: normal range of motion, non-tender, normal inspection, no pedal edema, no calf tenderness, normal capillary refill, pelvis stable 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 initial labs obtained at [facility] reveled an elevated troponin. The pt was slated to be transferred to [place] for evaluation by a lokie driver however his insisted that he come to [facility]. Although a PE is certainly in the differential, the pts suffers from CKD and a CTA was not obtained. The pt received full-dose Lovenox at [facility]. His hemoptysis appears to have resolved regardless. Acute PE and right lower extremity DVT hx of DVT and PE 9 months prior, treated with Xarelto for 6 mo. was placed on full-dose Lovenox, and the heparin Currently is on hold because planning to have bronc Recurrent PE/DVT, need to rule out underlined malignancy, we'll discuss with oncology , or recommend patient to follow-up with PCP to have on maintain physical examination updated. 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 Will continue sputum collections but also perform bronchoscopy for TB and infiltrate evaluation. Abnormal Thoracic CT: Mother just plan with bronchoscopic evaluation HTN - cont HCTZ/Benicar, add hydralazine as needed for accelerated hypertension Full code -heparin for DVT px d/w and RN Continued [facility] stay due to: multiple IV medications needed Discharge planning: home
[2017-02-15] VITALS (35 sets, daily range): BP systolic 98–175; BP diastolic 74–105; PULSE 68–91; TEMP 36.6–37.1; O2SAT 92–100
[2017-02-15 06:17] LABS: PARTIAL THROMBOPLASTIN RATIO 1.1
[2017-02-15 06:40] LABS: CREATININE 1.4 mg/dl (0.60-1.40); POTASSIUM 3.3 mmol/L (3.5-5.1)
[2017-02-15] MEDS ORDERED: NURSING VERBAL MED ORDER ONE ×4 (06:45→13:00)
[2017-02-15 06:46] LABS: CALCIUM 8.5 mg/dl (8.5-10.1)
[2017-02-15] MEDS: POTASSIUM CHLR 10MEQ / WTR IV SCH ×2 (08:43→09:52)
[2017-02-15] MEDS ORDERED: MIDAZOLAM HCL 5 MG/ML 1 ML VIAL ONE ×2 (08:57→10:43)
[2017-02-15] MEDS ORDERED: FENTANYL CITRATE INJ 50 MCG/1 ML 2 ML VIAL ONE ×2 (08:58→10:43)
[2017-02-15] MEDS ORDERED: DEXTROSE 5% 1000ML 1,000 ML IV SCH (09:30)
--- NOTE | 2017-02-15 10:59 | Progress Note ---
Subjective Date of Service: Feb 15, 2017. Subjective Pt evaluation today including: conversation w/ patient, conversation w/ family , physical exam, chart review, lab review, review of studies, conversation w/ salesforce consultant, review of inpatient medication list Doing the same some cough when deep breaths, still cough up some yellow sputum with some blood, no other complaint Review of Systems Constitutional: + fatigue, No fever, No chills, No sweats, No weight loss, No weakness, No problem reported Eyes: No worsening of vision, No eye pain, No redness, No discharge, No diplopia ENT: No hearing loss, No unusual epistaxis, No nasal symptoms, No sore throat, No tinnitus, No dental problems, No trouble swallowing Respiratory: + see HPI, + cough, No sputum, No wheezing, No shortness of breath , No dyspnea on exertion, No dyspnea at rest, No hemoptysis Cardiac: No chest pain, No orthopnea, No PND, No edema, No claudication, No palpitations Abdomen: No pain, No nausea, No vomiting, No diarrhea, No constipation Musculoskeletal: No joint pain, No muscle pain, No swelling, No calf pain Male : No dysuria, No urinary frequency, No incontinence, No nocturia more than once/night, No slowing stream, No hematuria Neurologic: No memory loss, No paralysis, No weakness, No numbness/tingling, No vertigo, No balance problems Psychiatric: No depression symptoms, No anhedonism, No anxiety, No insomnia, No substance abuse Heme: No abnormal bleeding/bruising, No clotting problems, No swollen lymph nodes, No night sweats Endo: No fatigue, No excessive thirst, No excessive urination Skin: No rash, No itch, No new/changing skin lesions, No color change, No bleeding Objective Vital Signs Date Time Temp Pulse Resp B/P (MAP) Pulse Ox O2 Delivery O2 Flow Rate FiO2 02/15/17 09:15 36.7 74 16 163/101 98 Nasal Cannula 5.0 02/15/17 07:25 36.7 74 16 163/101 (121) 98 Nasal Cannula 5.0 02/15/17 07:25 Nasal Cannula 5.0 02/15/17 04:00 98 Nasal Cannula 5.0 02/15/17 04:00 37.1 75 16 148/74 (98) 98 Nasal Cannula 5.0 02/14/17 23:59 36.8 84 20 166/100 (122) 97 Nasal Cannula 5.0 02/14/17 23:59 98 Nasal Cannula 5.0 02/14/17 20:00 36.5 68 18 164/106 (125) 97 Nasal Cannula 5.0 02/14/17 20:00 97 Nasal Cannula 5.0 02/14/17 16:00 Nasal Cannula 5.0 02/14/17 16:00 37.0 78 18 165/107 (126) 98 Nasal Cannula 5.0 02/14/17 11:40 37.0 80 18 153/100 (117) 97 Nasal Cannula 5.0 02/14/17 11:40 Nasal Cannula 5.0 Physical Exam General Appearance: WD/WN, no apparent distress Eyes: normal inspection, PERRL, EOMI, sclerae normal ENT: normal ENT inspection, hearing grossly normal, pharynx normal Neck: supple, no adenopathy, thyroid normal, no JVD, no carotid bruits, trachea midline Respiratory/Chest: chest non-tender, normal breath sounds, no respiratory distress, no accessory muscle use, + decreased breath sounds Cardiovascular: regular rate, rhythm, no gallop, no JVD, no murmur, + pertinent finding (trace edema) Abdomen: normal bowel sounds, non tender, soft, no organomegaly, no pulsatile mass Extremities: normal range of motion, non-tender, normal inspection, no pedal edema, no calf tenderness, normal capillary refill, pelvis stable Neurologic/Psychiatric: 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-XII nml as tested, no motor/sensory deficits, alert, normal mood/affect, oriented x 3 Skin: normal color, warm/dry, no rash Lymphatic: no adenopathy Laboratory Results Last 24 Hours Test 02/15/17 05:38 Activated Partial Thromboplast Time 28.5 SECONDS Partial Thromboplastin Ratio 1.1 Sodium Level 143 mmol/L Potassium Level 3.3 mmol/L Chloride Level 107 mmol/L Carbon Dioxide Level 28 mmol/L Anion Gap 8.0 mmol/L Blood Urea Nitrogen 21 mg/dl Creatinine 1.40 mg/dl Est Creatinine Clear Calc Drug Dose 50.5 ml/min Estimated GFR () 57.0 Estimated GFR (Non- 49.1 BUN/Creatinine Ratio 15.0 Random Glucose 92 mg/dl Calcium Level 8.5 mg/dl Magnesium Level 2.0 mg/dl Assessment and Plan 76 y/o M transferred form [facility] for progressive SOB, was highly suspicious out PE, which was confirmed by high probability of V/Q scan He had URI symptoms this week including a cough and then developed acutely worse SOB, asso with blood streaked sputum. initial labs obtained at [place] reveled an elevated troponin. The pt was slated to be transferred to [place] for evaluation by a pt sitter however his insisted that he come to [facility]. Although a PE is certainly in the differential, the pts suffers from CKD and a CTA was not obtained. The pt received full-dose Lovenox at [place]. His hemoptysis appears to have resolved regardless. Acute PE and right lower extremity DVT: Continue stable hx of DVT and PE 9 months prior, treated with Xarelto for 6 mo. was placed on full-dose Lovenox, and the heparin Currently heparin is on hold because planning to have bronch Recurrent PE/DVT, need to rule out underlined malignancy, we'll discuss with oncology , or recommend patient to follow-up with PCP to have on maintain physical examination updated. 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 Will continue sputum collections but paradi operator perform bronchoscopy for TB and infiltrate evaluation. Abnormal Thoracic CT: Information Services Assistant plan with bronchoscopic evaluation HTN - cont HCTZ/Benicar, resume to home dose HCTZ/Benicar hydralazine as needed for accelerated hypertension Mild elevated troponin: Continue aspirin (HOLD because doing bronch), atorvastatin, and angiotensin receptor orestes. Per recommend of pt sitter when the patient is stable from a pulmonary and respiratory standpoint could consider performing a stress test to evaluate for stress induced myocardial ischemia, no indication for any urgent or emergent cardiac catheterization procedure. Has told patient about this. Full code -heparin for DVT px, which is on hold now, SCD for DVT prophylaxis d/w and RN Continued [facility] stay due to: multiple IV medications needed Discharge planning: home
--- NOTE | 2017-02-15 12:02 | Bronchoscopy Procedure Note ---
Bronchoscopy Procedure Note Procedure: Bronchoscopy, conscious sedation, BAL & Tbbx of the RUL (RB6) Consent: Obtained through the patient placed into the chart Pre-procedural diagnosis: ACID DIPPER vs. TB. vs. Carcinoma Post-procedural diagnosis: ACID DIPPER vs. TB. vs. Carcinoma Start time: 1114 End time: 1145 Total time: 31 minutes Analgesia: 2% liquid lidocaine: Via nebulizer 4% gel lidocaine: Via right naris 2% liquid lidocaine: Via bronchoscopy Sedation: Versed IV: 6 mg Fentanyl IV: 150 g Procedure: The LA[employer] video bronchoscope was used for this procedure and passed down through the right naris Right naris/posterior naris/posterior oropharynx: Anatomically within normal limits Glottis: Anatomically within normal limits Vocal cords: Proper abduction and abduction, anatomically within normal limits Subglottis/trachea/Mile: Anatomically within normal limits Right bronchial tree: Right mainstem bronchus: Anatomically within normal limits Right upper lobe: Anatomically within normal limits Bronchus intermedius: Anatomically within normal limits Right middle lobe: Anatomically within normal limits Right lower lobe: Anatomically within normal limits Findings: No significant findings noted Left bronchial tree: Left mainstem bronchus: Anatomically within normal limits Left upper lobe: Anatomically within normal limits Lingula: Anatomically within normal limits Left lower lobe: Anatomically within normal limits Findings: No significant findings noted Bronchial alveolar lavage: RB6 80cc with 40cc returned EBL: None Complications: None Follow-up: In the [facility]
--- NOTE | 2017-02-15 12:40 | DIAGNOSTIC IMAGING REPORT ---
CHEST ONE VIEW PORTABLE CLINICAL HISTORY: r/o PTX pneumonia COMPARISON STUDY: 02/13/2017 FINDINGS: No evidence for pneumothorax status post bronchoscopy. Right perihilar infiltrative masslike changes are again noted and appears similar. Left lung is grossly clear. IMPRESSION: No evidence pneumothorax. Similar right hilar/perihilar mass/infiltrate. Electronically signed by: Ye Quigley M.D. 02/15/2017 12:39 PM Dictated Date/Time: 02/15/2017 12:38 PM
[2017-02-15] MEDS: ATORVASTATIN 40 MG TAB PO SCH (13:07)
[2017-02-15] MEDS: BENICAR HCT PO SCH (13:07)
[2017-02-15] MEDS: ASPIRIN 81 MG ECTAB PO SCH (13:07)
[2017-02-15] MEDS: ENOXAPARIN 100 MG/1ML SYR SQ SCH (20:56)
[2017-02-16] VITALS (11 sets, daily range): BP systolic 115–176; BP diastolic 89–134; PULSE 63–78; TEMP 36.5–36.8; O2SAT 90–97
[2017-02-16 06:09] LABS: PARTIAL THROMBOPLASTIN RATIO 1.2
[2017-02-16 06:47] LABS: BUN/CREATININE RATIO 19.2 (10-20); CALCIUM 8.3 mg/dl (8.5-10.1); CREATININE 1.6 mg/dl (0.60-1.40); MAGNESIUM 2.1 mg/dl (1.8-2.4)
[2017-02-16] MEDS: ASPIRIN 81 MG ECTAB PO SCH (08:24)
[2017-02-16] MEDS: BENICAR HCT PO SCH (08:25)
[2017-02-16] MEDS: ATORVASTATIN 40 MG TAB PO SCH (08:25)
[2017-02-16] MEDS: ENOXAPARIN 100 MG/1ML SYR SQ SCH ×2 (08:26→19:50)
--- NOTE | 2017-02-16 16:15 | Pulmonology Progress Note ---
Pulmonary Progress Note Date of Service Feb 16, 2017. Attending Dr. Cavanaugh Subjective Patient doing well this afternoon with minimal diffuse sputum production no fevers chills fatigue is resolving, no active pulmonary complaints Objective Patient also (, no tachypnea, no accessory muscle use, no active cough VS: stable RESP: CTA bilaterally CARD: S1S2 RRR ABD: no M/R/G EXT: no edema CT Thorax reviewed with GGO changes and RLL mass vs. infiltrate Mixed lucent and sclerotic lesion within the T1 vertebra. This is indeterminate although may reflect a hemangioma or Paget's. BAL: AFB: Stay negative Transbronchial biopsies pending Assessment & Plan Assessment and Plan 76-year-old gentleman with pulmonary embolism, abnormal CT thorax and possible tuberculosis: #1 Tuberculosis: This time we have one negative AFB stain. We are still waiting on obtaining more appropriate AFB sputum samples. If the patient's transbronchial biopsies also come back negative for AFB those will be acceptable for rule out active tuberculosis. #[address]: Move forward with bronchoscopic evaluation #3 Pulmonary Embolism: Patient has history of pulmonary, high probability V/Q scan and current hemoptysis. At this time I agree with full dose Lovenox. Believe at this time we need to review the patient's recent cancer workup. Occult cancers in male patient's with thrombo-embolic disease are most likely from the lung 26%, prostate 17% or colorectal region at 10%. Will hold anti- coagulation at this time for bronchoscopy and possible biopsies. When done will restart anti-coagulation. Possible move to Rivaroxaban. New meet analysis suggest non-inferior to Lovenox in patient's with cancer in preventing recurrent VTE. Will discuss with Oncology at this time. Data Medications: Current Inpatient Medications Medications (Trade) Dose Ordered Sig/Topher Route Start Time Stop Time Status Last Admin Dose Admin Acetaminophen (Tylenol Tab) 650 mg Q4H PRN PO 02/13/17 04:00 03/15/17 03:59 Al Hydrox/Mg Hydrox/Simethicone (Maalox Max Susp) 15 ml Q4H PRN PO 02/13/17 04:00 03/15/17 03:59 Magnesium Hydroxide (Milk Of Magnesia Susp) 30 ml Q12H PRN PO 02/13/17 04:00 03/15/17 03:59 Zolpidem Tartrate (Ambien Tab) 5 mg HSZ PRN PO 02/13/17 04:00 03/15/17 03:59 Ondansetron HCl (Zofran Inj) 4 mg Q6H PRN IV 02/13/17 04:00 03/15/17 03:59 Nitroglycerin (Nitrostat Tab) 0.4 mg UD PRN SL 02/13/17 04:00 03/15/17 03:59 Morphine Sulfate (MoRPHine SULFATE INJ) 2 mg Q30M PRN IV 02/13/17 04:00 02/27/17 03:59 Aspirin (Ecotrin Tab) 81 mg QAM PO 02/13/17 09:00 03/15/17 08:59 02/16/17 08:24 81 MG Polyethylene (Miralax Powder Packet) 17 gm DAILY PRN PO 02/13/17 04:00 03/15/17 03:59 Atorvastatin Calcium (Lipitor Tab) 40 mg QAM PO 02/13/17 09:00 03/15/17 08:59 02/16/17 08:25 40 MG Albuterol Sulfate (Ventolin 0.083% 2.5MG/3ML Neb) 2.5 mg Q6R PRN INH 02/13/17 04:15 03/15/17 04:14 Non-Formulary Medication (Non-Formulary Patient'S Own Med) 1 ea QAM PO 02/16/17 09:00 03/18/17 08:59 02/16/17 08:25 1 EA Enoxaparin Sodium (Lovenox Inj) 90 mg Q12H SQ 02/15/17 21:00 03/17/17 20:59 02/16/17 08:26 90 MG I & O: 24-Hour Column 02/17/17 08:00 Intake Total 580 ml Balance 580 ml Vital Signs: Date Time Temp Pulse Resp B/P (MAP) Pulse Ox O2 Delivery O2 Flow Rate FiO2 02/16/17 12:05 Room Air 02/16/17 11:47 36.7 70 18 142/91 (108) 96 02/16/17 08:05 Room Air 02/16/17 08:04 36.8 63 18 158/96 (116) 97 Room Air 02/16/17 04:00 90 Room Air 02/16/17 04:00 36.7 78 149/89 (109) 90 Room Air 02/16/17 00:00 92 Room Air 02/15/17 23:20 36.9 71 20 170/89 (116) 92 Room Air 02/15/17 20:25 36.6 75 169/101 (123) 92 Room Air 02/15/17 20:25 92 Room Air Laboratory Results: Last 24 Hours Test 02/16/17 05:27 02/16/17 05:29 Sodium Level 145 mmol/L Potassium Level 4.0 mmol/L Chloride Level 107 mmol/L Carbon Dioxide Level 29 mmol/L Anion Gap 9.0 mmol/L Blood Urea Nitrogen 31 mg/dl Creatinine 1.60 mg/dl Est Creatinine Clear Calc Drug Dose 43.7 ml/min Estimated GFR () 48.5 Estimated GFR (Non- 41.8 BUN/Creatinine Ratio 19.2 Random Glucose 90 mg/dl Calcium Level 8.3 mg/dl Magnesium Level 2.1 mg/dl Activated Partial Thromboplast Time 30.0 SECONDS Partial Thromboplastin Ratio 1.2
[2017-02-17] VITALS (9 sets, daily range): BP systolic 152–172; BP diastolic 55–100; PULSE 61–74; TEMP 36.5–36.9; O2SAT 92–98
[2017-02-17 06:08] LABS: PARTIAL THROMBOPLASTIN RATIO 1.2
[2017-02-17] MEDS: ATORVASTATIN 40 MG TAB PO SCH (07:45)
[2017-02-17] MEDS: ENOXAPARIN 100 MG/1ML SYR SQ SCH (07:46)
[2017-02-17] MEDS: ASPIRIN 81 MG ECTAB PO SCH (07:46)
[2017-02-17] MEDS: BENICAR HCT PO SCH (07:47)
--- NOTE | 2017-02-17 14:20 | Pulmonology Progress Note ---
Pulmonary Progress Note Date of Service Feb 17, 2017. Attending Dr. Cavanaugh Subjective Patient is doing well today with the patient is doing well today with no active pulmonary complaints Objective Patient also (, no tachypnea, no accessory muscle use, no active cough) VS: stable RESP: CTA bilaterally CARD: S1S2 RRR ABD: no M/R/G EXT: no edema CT Thorax reviewed with GGO changes and RLL mass vs. infiltrate Mixed lucent and sclerotic lesion within the T1 vertebra. This is indeterminate although may reflect a hemangioma or Paget's. BAL: AFB: Stay negative Transbronchial biopsies pending Morning AFB collected 6 08/05/19: Analysis pending Assessment & Plan Assessment and Plan 76-year-old gentleman with pulmonary embolism, abnormal CT thorax and possible tuberculosis: #1 Tuberculosis: This time we have one negative AFB stain. We are still waiting on obtaining more appropriate AFB sputum samples. If the patient's transbronchial biopsies also come back negative for AFB those will be acceptable for rule out active tuberculosis. #[address]: Move forward with bronchoscopic evaluation #3 Pulmonary Embolism: Patient has history of pulmonary, high probability V/Q scan and current hemoptysis. At this time I agree with full dose Lovenox. We still need the patient's outside records for previous colon cancer workup secondary to VTE. If the transbronchial biopsies are negative I believe we can switch patient to Xarelto at that time. Data Medications: Current Inpatient Medications Medications (Trade) Dose Ordered Sig/Topher Route Start Time Stop Time Status Last Admin Dose Admin Acetaminophen (Tylenol Tab) 650 mg Q4H PRN PO 02/13/17 04:00 03/15/17 03:59 Al Hydrox/Mg Hydrox/Simethicone (Maalox Max Susp) 15 ml Q4H PRN PO 02/13/17 04:00 03/15/17 03:59 Magnesium Hydroxide (Milk Of Magnesia Susp) 30 ml Q12H PRN PO 02/13/17 04:00 03/15/17 03:59 Zolpidem Tartrate (Ambien Tab) 5 mg HSZ PRN PO 02/13/17 04:00 03/15/17 03:59 Ondansetron HCl (Zofran Inj) 4 mg Q6H PRN IV 02/13/17 04:00 03/15/17 03:59 Nitroglycerin (Nitrostat Tab) 0.4 mg UD PRN SL 02/13/17 04:00 03/15/17 03:59 Morphine Sulfate (MoRPHine SULFATE INJ) 2 mg Q30M PRN IV 02/13/17 04:00 02/27/17 03:59 Aspirin (Ecotrin Tab) 81 mg QAM PO 02/13/17 09:00 03/15/17 08:59 02/17/17 07:46 81 MG Polyethylene (Miralax Powder Packet) 17 gm DAILY PRN PO 02/13/17 04:00 03/15/17 03:59 Atorvastatin Calcium (Lipitor Tab) 40 mg QAM PO 02/13/17 09:00 03/15/17 08:59 02/17/17 07:45 40 MG Albuterol Sulfate (Ventolin 0.083% 2.5MG/3ML Neb) 2.5 mg Q6R PRN INH 02/13/17 04:15 03/15/17 04:14 Non-Formulary Medication (Non-Formulary Patient'S Own Med) 1 ea QAM PO 02/16/17 09:00 03/18/17 08:59 02/17/17 07:47 1 EA Enoxaparin Sodium (Lovenox Inj) 90 mg Q12H SQ 02/15/17 21:00 03/17/17 20:59 02/17/17 07:46 90 MG Vital Signs: Date Time Temp Pulse Resp B/P (MAP) Pulse Ox O2 Delivery O2 Flow Rate FiO2 02/17/17 12:03 36.9 74 18 164/95 (118) 95 Room Air 02/17/17 12:01 Room Air 02/17/17 08:05 Room Air 02/17/17 07:35 36.7 61 20 160/55 (90) 92 Room Air 02/17/17 04:06 95 Room Air 5.0 02/17/17 03:37 36.8 72 18 172/89 (116) 95 Room Air 02/17/17 00:08 95 Room Air 5.0 02/16/17 23:45 36.7 70 20 176/91 (119) 94 Room Air 02/16/17 21:51 71 164/108 (126) 02/16/17 21:49 72 176/97 (123) 02/16/17 21:17 115/112 (113) 172/134 (147) 02/16/17 20:10 36.6 63 20 176/118 (137) 96 Room Air 02/16/17 20:00 95 Room Air 5.0 02/16/17 16:17 36.5 69 20 153/104 (120) 95 Room Air 02/16/17 16:02 Room Air Laboratory Results: Last 24 Hours Test 02/17/17 05:17 Activated Partial Thromboplast Time 31.7 SECONDS Partial Thromboplastin Ratio 1.2
[2017-02-17] MEDS ORDERED: NURSING VERBAL MED ORDER ONE ×2 (16:00→16:15)
[2017-02-17] MEDS ORDERED: AMLODIPINE BESYLATE 5 MG TAB PO ONE (16:00)
--- NOTE | 2017-02-17 16:30 | Progress Note ---
Subjective Date of Service: Feb 17, 2017. Subjective Pt evaluation today including: conversation w/ patient, conversation w/ family , physical exam, chart review, lab review, review of studies, conversation w/ cycle consultant, review of inpatient medication list Was anxious and blood pressure high, now is better Review of Systems Constitutional: No fever, No chills, No sweats, No weight loss, No weakness, No fatigue, No problem reported Eyes: No worsening of vision, No eye pain, No redness, No discharge, No diplopia ENT: No hearing loss, No unusual epistaxis, No nasal symptoms, No sore throat, No tinnitus, No dental problems, No trouble swallowing Respiratory: No cough, No sputum, No wheezing, No shortness of breath, No dyspnea on exertion, No dyspnea at rest, No hemoptysis Cardiac: No chest pain, No orthopnea, No PND, No edema, No claudication, No palpitations Abdomen: No pain, No nausea, No vomiting, No diarrhea, No constipation Musculoskeletal: No joint pain, No muscle pain, No swelling, No calf pain Male : No dysuria, No urinary frequency, No incontinence, No nocturia more than once/night, No slowing stream, No hematuria Neurologic: No memory loss, No paralysis, No weakness, No numbness/tingling, No vertigo, No balance problems Psychiatric: No depression symptoms, No anhedonism, No anxiety, No insomnia, No substance abuse Heme: No abnormal bleeding/bruising, No clotting problems, No swollen lymph nodes, No night sweats Endo: No fatigue, No excessive thirst, No excessive urination Skin: No rash, No itch, No new/changing skin lesions, No color change, No bleeding Objective Vital Signs Date Time Temp Pulse Resp B/P (MAP) Pulse Ox O2 Delivery O2 Flow Rate FiO2 02/17/17 16:07 36.5 66 18 156/75 (102) 96 Room Air 02/17/17 16:02 Room Air 02/17/17 12:03 36.9 74 18 164/95 (118) 95 Room Air 02/17/17 12:01 Room Air 02/17/17 08:05 Room Air 02/17/17 07:35 36.7 61 20 160/55 (90) 92 Room Air 02/17/17 04:06 95 Room Air 5.0 02/17/17 03:37 36.8 72 18 172/89 (116) 95 Room Air 02/17/17 00:08 95 Room Air 5.0 02/16/17 23:45 36.7 70 20 176/91 (119) 94 Room Air 02/16/17 21:51 71 164/108 (126) 02/16/17 21:49 72 176/97 (123) 02/16/17 21:17 115/112 (113) 172/134 (147) 02/16/17 20:10 36.6 63 20 176/118 (137) 96 Room Air 02/16/17 20:00 95 Room Air 5.0 Physical Exam General Appearance: WD/WN, no apparent distress Eyes: normal inspection, PERRL, EOMI, sclerae normal ENT: normal ENT inspection, hearing grossly normal, pharynx normal Neck: supple, no adenopathy, thyroid normal, no JVD, no carotid bruits, trachea midline Respiratory/Chest: chest non-tender, lungs clear, normal breath sounds, no respiratory distress, no accessory muscle use Cardiovascular: regular rate, rhythm, no edema, no gallop, no JVD, no murmur Abdomen: normal bowel sounds, non tender, soft, no organomegaly, no pulsatile mass Extremities: normal range of motion, non-tender, normal inspection, no pedal edema, no calf tenderness, normal capillary refill, pelvis stable Neurologic/Psychiatric: powder expert II-XII nml as tested, no motor/sensory deficits, alert, normal mood/affect, oriented x 3 Skin: normal color, warm/dry, no rash Lymphatic: no adenopathy Laboratory Results Last 24 Hours Test 02/17/17 05:17 Activated Partial Thromboplast Time 31.7 SECONDS Partial Thromboplastin Ratio 1.2 Assessment and Plan 76 y/o M transferred form [facility] for progressive SOB, was highly suspicious out PE, which was confirmed by high probability of V/Q scan He had URI symptoms this week including a cough and then developed acutely worse SOB, asso with blood streaked sputum. initial labs obtained at [place] reveled an elevated troponin. The pt was slated to be transferred to [place] for evaluation by a commercial relief driver however his insisted that he come to [facility]. Although a PE is certainly in the differential, the pts suffers from CKD and a CTA was not obtained. The pt received full-dose Lovenox at [place]. His hemoptysis appears to have resolved regardless. Acute PE and right lower extremity DVT: Continue stable hx of DVT and PE 9 months prior, treated with Xarelto for 6 mo. was placed on full-dose Lovenox, and theN heparin Restart Xarelto after [facility] Recurrent PE/DVT, need to rule out underlined malignancy, TODAY recommend patient to follow-up with PCP to have ALL maintain physical examination updated. 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 Will continue sputum collections but percussion instrument tuner perform bronchoscopy for TB and infiltrate evaluation WELL Per pulm: this time we have one negative AFB stain. We are still waiting on obtaining more appropriate AFB sputum samples. If the patient's transbronchial biopsies also come back negative for AFB those will be acceptable for rule out active tuberculosis. Abnormal Thoracic CT: Information Support Project Manager had bronch valuation, we'll follow-up results Accelerated hypertension ; persistent around 160 for 2 days, cont home dose HCTZ/Benicar, patient has history of side effect severe lower extremity edema from amlodipine , therefore no amlodipine, patient is chronic bradycardia, therefore no beta-orestes, I start hydralazine 10 mg by mouth 3 times a day, discussed with patient about risk and benefit and side effect, he understand and agreed hydralazine as needed for accelerated hypertension Mild elevated troponin: Continue aspirin (HOLD because doing bronch), atorvastatin, and angiotensin receptor orestes. Per recommend of commercial relief driver when the patient is stable from a pulmonary and respiratory standpoint could consider performing a stress test to evaluate for stress induced myocardial ischemia, no indication for any urgent or emergent cardiac catheterization procedure. Has told patient about this. Full code -heparin for DVT px, which is on hold now, SCD for DVT prophylaxis can be discharged to home after cleared by percussion instrument tuner for the TB d/w and RN Continued [facility] stay due to: multiple IV medications needed Discharge planning: home
[2017-02-17] MEDS: HydrALAZINE 10 MG TAB PO SCH ×2 (17:00→20:17)
[2017-02-17] MEDS: RIVAROXABAN TAB 15 MG TAB PO SCH (17:00)
[2017-02-18] VITALS (13 sets, daily range): BP systolic 136–173; BP diastolic 74–98; PULSE 60–85; TEMP 36.3–37.3; O2SAT 94–96
[2017-02-18 06:51] LABS: PARTIAL THROMBOPLASTIN RATIO 1.2
[2017-02-18] MEDS: RIVAROXABAN TAB 15 MG TAB PO SCH ×2 (07:47→16:49)
[2017-02-18] MEDS: HydrALAZINE 10 MG TAB PO SCH ×3 (07:48→20:46)
[2017-02-18] MEDS: ATORVASTATIN 40 MG TAB PO SCH (07:48)
[2017-02-18] MEDS: ASPIRIN 81 MG ECTAB PO SCH (07:48)
[2017-02-18] MEDS: BENICAR HCT PO SCH (07:49)
[2017-02-18 08:20] LABS: BUN/CREATININE RATIO 18.1 (10-20); CREATININE 1.7 mg/dl (0.60-1.40); POTASSIUM 3.5 mmol/L (3.5-5.1)
[2017-02-18 08:25] LABS: HEMATOCRIT 43.2 % (42-52); MEAN CELL VOLUME 90.9 fL (80-100); MEAN CORPUSCULAR HEMOGLOBIN 31.4 pg (25-34); MEAN CORPUSCULAR HGB CONC 34.5 g/dl (32-36); PLATELET COUNT 222 K/uL (130-400); RED BLOOD COUNT 4.75 M/uL (4.7-6.1); WHITE BLOOD COUNT 6.25 K/uL (4.8-10.8)
[2017-02-18] MEDS ORDERED: AMLODIPINE BESYLATE 5 MG TAB PO SCH (09:00)
[2017-02-18 09:03] LABS: CALCIUM 8.9 mg/dl (8.5-10.1)
--- NOTE | 2017-02-18 10:02 | Pulmonology Progress Note ---
Pulmonary Progress Note Date of Service Feb 18, 2017. Attending Dr Telles Subjective Patient feeling generally improved today. Continues to cough productive of scant blood streaked sputum - more productive throughout the day. Sleeping well. Denies any dyspnea or wheeze. Objective 76-yo male transferred from [facility] 02/13/17 with 3-week h/o progressive dyspnea, cough productive of green/yellow blood tinged sputum. W/U (as below) consistent with submassive pulmonary emboli. 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 Prior records were reviewed. PMHx includes: HTN, CKD III, h/o provoked DVT 2015, PE (06/2016 s/p Xarelto x 6-mo), obstructing nephrolithiasis, and HTN. - Echocardiogram 02/13/17: mild/mod RA dilation, mild TR, severe pulmonary HTN ( RVSP: > 60mmHg), flattened septum consistent with RV overload with moderate reduction in RV function, left ventricular Grade I diastolic dysfunction, EF: 60 -65% - CXR 02/13/17: 5.6cm right perihilar opacity - CT Chest 02/13/17: Mild dilation of the ascending aorta. dense consolidation in the superior segment of the RLL with air bronchograms and consolidation in the RML. Patchy airspace opacities in bilateral upper lobes - no cavitation. - Venous doppler 02/13/17: RLL DVT - right common femoral, femoral (occlusive), popliteal (occlusive), posterior tibial, peroneal and anterior tibial veins. - VQ scan 02/13/17: multiple ventilation/perfusion mismatches bilaterally consistent with high probability of pulmonary embolus. Today: - 95-96%: 5LPM - Afebrile, hypertensive - WBC/Hgb/Hct/Plts: 6.25/14.9/43.2/222 - CO2: 27, Cr: 1.7 - Quant Gold: pending - BAL: 02/15: no AFB on smear, culture pending - Sputum AFB 02/17: pending - Sputum AFB 02/18: pending - Bronch pathology RLL and BAL: pending - normal Nancy cultured - coag w/u pending - Day #2 Rivaroxaban Physical Exam: Constitutional: WDWN male sitting up in hospital bed. No acute distress Head: + facial symmetry Eyes: EOMi, PERRLA, no injection Mouth: moist mucous membranes Respiratory: non-labored respirations. Room Air. Rhonchi right lateral field and to a lesser degree left lateral field. No crackles. No wheeze. CV: RRR, no MRG. Warm and perfused peripherally. MSK/Extremities: Moving and developed symmetrically. NO peripheral edema. Neurologic: A&O. Good data recall. Appropriate affect. Assessment & Plan 76-year-old gentleman with pulmonary embolism and abnormal CT thorax 1. R/O Tuberculosis pending: - No AFB on smear 02/15 - Rest cultures, biopsies, and Quant Gold: pending 2. Abnormal Thoracic CT and continued productive cough: - Bronchoscopy: normal nancy with remaining pathology and cultures pending - Initiate and complete course PO levofloxacin - renal dosing x 7-day 3. Submassive Pulmonary Embolism: - Second occurrence - provoked - Continue Xarelto and follow results hypercoagulable w/u (pending), outpatient screening and bronchoscopy results Case discussed with DR. Telles Data Medications: Current Inpatient Medications Medications (Trade) Dose Ordered Sig/Topher Route Start Time Stop Time Status Last Admin Dose Admin Acetaminophen (Tylenol Tab) 650 mg Q4H PRN PO 02/13/17 04:00 03/15/17 03:59 Al Hydrox/Mg Hydrox/Simethicone (Maalox Max Susp) 15 ml Q4H PRN PO 02/13/17 04:00 03/15/17 03:59 Magnesium Hydroxide (Milk Of Magnesia Susp) 30 ml Q12H PRN PO 02/13/17 04:00 03/15/17 03:59 Zolpidem Tartrate (Ambien Tab) 5 mg HSZ PRN PO 02/13/17 04:00 03/15/17 03:59 Ondansetron HCl (Zofran Inj) 4 mg Q6H PRN IV 02/13/17 04:00 03/15/17 03:59 Nitroglycerin (Nitrostat Tab) 0.4 mg UD PRN SL 02/13/17 04:00 03/15/17 03:59 Morphine Sulfate (MoRPHine SULFATE INJ) 2 mg Q30M PRN IV 02/13/17 04:00 02/27/17 03:59 Aspirin (Ecotrin Tab) 81 mg QAM PO 02/13/17 09:00 03/15/17 08:59 02/18/17 07:48 81 MG Polyethylene (Miralax Powder Packet) 17 gm DAILY PRN PO 02/13/17 04:00 03/15/17 03:59 Atorvastatin Calcium (Lipitor Tab) 40 mg QAM PO 02/13/17 09:00 03/15/17 08:59 02/18/17 07:48 40 MG Albuterol Sulfate (Ventolin 0.083% 2.5MG/3ML Neb) 2.5 mg Q6R PRN INH 02/13/17 04:15 03/15/17 04:14 Non-Formulary Medication (Non-Formulary Patient'S Own Med) 1 ea QAM PO 02/16/17 09:00 03/18/17 08:59 02/18/17 07:49 1 EA Rivaroxaban (Xarelto Tab) 15 mg BIDM PO 02/17/17 16:45 03/10/17 16:44 02/18/17 07:47 15 MG Hydralazine HCl (Apresoline Tab) 10 mg TID PO 02/17/17 16:30 03/19/17 16:29 02/18/17 07:48 10 MG Vital Signs: Date Time Temp Pulse Resp B/P (MAP) Pulse Ox O2 Delivery O2 Flow Rate FiO2 02/18/17 08:01 95 Room Air 02/18/17 04:11 95 Room Air 5.0 02/18/17 03:51 36.7 60 18 159/98 (118) 95 Room Air 02/18/17 00:07 95 Room Air 5.0 02/17/17 23:46 36.6 67 18 169/100 (123) 96 Room Air 02/17/17 20:00 95 Room Air 5.0 02/17/17 19:26 36.8 66 18 152/63 (92) 98 02/17/17 16:07 36.5 66 18 156/75 (102) 96 Room Air 02/17/17 16:02 Room Air 02/17/17 12:03 36.9 74 18 164/95 (118) 95 Room Air 02/17/17 12:01 Room Air Laboratory Results: Last 24 Hours Test 02/18/17 05:40 White Blood Count 6.25 K/uL Red Blood Count 4.75 M/uL Hemoglobin 14.9 g/dL Hematocrit 43.2 % Mean Corpuscular Volume 90.9 fL Mean Corpuscular Hemoglobin 31.4 pg Mean Corpuscular Hemoglobin Concent 34.5 g/dl RDW Standard Deviation 42.7 fL RDW Coefficient of Variation 12.8 % Platelet Count 222 K/uL Mean Platelet Volume 10.0 fL Activated Partial Thromboplast Time 31.7 SECONDS Partial Thromboplastin Ratio 1.2 Sodium Level 143 mmol/L Potassium Level 3.5 mmol/L Chloride Level 106 mmol/L Carbon Dioxide Level 27 mmol/L Anion Gap 10.0 mmol/L Blood Urea Nitrogen 31 mg/dl Creatinine 1.70 mg/dl Est Creatinine Clear Calc Drug Dose 41.1 ml/min Estimated GFR () 45.0 Estimated GFR (Non- 38.9 BUN/Creatinine Ratio 18.1 Random Glucose 86 mg/dl Calcium Level 8.9 mg/dl
--- NOTE | 2017-02-18 12:24 | Hospitalist Progress Note ---
Hospitalist Progress Note Date of Service Feb 18, 2017. (Milagros Lundy ., GIO) Subjective Pt evaluation today including: conversation w/ patient, physical exam, chart review, lab review, review of inpatient medication list Pain: None PO Intake: Tolerating PO diet Voiding: no voiding problems Patient reports feeling well. He states he's frustrated about his prolonged stay in the hospital. He denies any shortness of breath now. He still has a productive cough as well as intermittent hemoptysis, but this is improved compared to admission. He has some mild intermittent wheezing between coughing. He states that he otherwise feels back to normal. The patient denies fevers, chills, sweats, chest pain, palpitations, claudication, shortness of breath, nausea, vomiting, abdominal pain, dysuria, hematuria, urinary retention, paralysis, weakness, numbness and tingling. Additional Comments: See HPI for pertinent positives and negatives. All other systems reviewed and negative. (Milagros Lundy PA-C) Objective Vital Signs Date Time Temp Pulse Resp B/P (MAP) Pulse Ox O2 Delivery O2 Flow Rate FiO2 02/18/17 11:46 36.3 63 18 136/83 (100) 94 Room Air 02/18/17 08:01 95 Room Air 02/18/17 04:11 95 Room Air 5.0 02/18/17 03:51 36.7 60 18 159/98 (118) 95 Room Air 02/18/17 00:07 95 Room Air 5.0 02/17/17 23:46 36.6 67 18 169/100 (123) 96 Room Air 02/17/17 20:00 95 Room Air 5.0 02/17/17 19:26 36.8 66 18 152/63 (92) 98 02/17/17 16:07 36.5 66 18 156/75 (102) 96 Room Air 02/17/17 16:02 Room Air 02/17/17 12:03 36.9 74 18 164/95 (118) 95 Room Air 02/17/17 12:01 Room Air (Milagros Lundy PA-C) Physical Exam Notes: General appearance: +Obese. Well-developed, well-nourished, no apparent distress Head: Normocephalic, atraumatic Eyes: Normal inspection, PERRL, EOMI ENT: Normal ENT inspection, hearing grossly normal, pharynx normal Neck: Supple, no JVD, trachea midline Respiratory/Chest: +Slight wheezing right lung base. Normal breath sounds, no respiratory distress Cardiovascular: Regular rate & rhythm, no gallop, no murmur Abdomen/GI: Normal bowel sounds, non-tender, soft Extremities/Musculoskeletal: Normal inspection, no calf tenderness, no pedal edema Neurological/Psych: Alert, normal mood/affect, oriented x 3 Skin: Normal color, warm/dry, no rash (Milagros Lundy ., PA-C) Laboratory Results Last 24 Hours Test 02/18/17 05:40 White Blood Count 6.25 K/uL Red Blood Count 4.75 M/uL Hemoglobin 14.9 g/dL Hematocrit 43.2 % Mean Corpuscular Volume 90.9 fL Mean Corpuscular Hemoglobin 31.4 pg Mean Corpuscular Hemoglobin Concent 34.5 g/dl RDW Standard Deviation 42.7 fL RDW Coefficient of Variation 12.8 % Platelet Count 222 K/uL Mean Platelet Volume 10.0 fL Activated Partial Thromboplast Time 31.7 SECONDS Partial Thromboplastin Ratio 1.2 Sodium Level 143 mmol/L Potassium Level 3.5 mmol/L Chloride Level 106 mmol/L Carbon Dioxide Level 27 mmol/L Anion Gap 10.0 mmol/L Blood Urea Nitrogen 31 mg/dl Creatinine 1.70 mg/dl Est Creatinine Clear Calc Drug Dose 41.1 ml/min Estimated GFR () 45.0 Estimated GFR (Non- 38.9 BUN/Creatinine Ratio 18.1 Random Glucose 86 mg/dl Calcium Level 8.9 mg/dl (Milagros Lundy ., PA-C) Assessment and Plan 76 y/o male with a history of HTN, HLD, CKD stage III and h/o DVT and a PE 9 months ago who was transferred form [facility] for progressive SOB. Associated hemoptysis. Pt also found to have elevated troponin on arrival. He received full dose Lovenox at [place] prior to transfer. Acute PE and right lower extremity DVT--stable -Admitted to telemetry. No acute events overnight, pt remained in SR/sinus bradycardia with HR 50s-60s -H/o DVT/PE 9 months ago, treated with Xarelto for 6 months. Now second PE in 1 year, concerning for malignancy -V/Q scan high probability of PE -Was on Lovenox, then heparin drip -Continue Xarelto 15 mg PO BID ?Tuberculosis/abnormal CT findings--stable -Pt frequently travels to [place] for work, risk of active TB -Bronchoscopy showed no significant findings -Awaiting transbronchial biopsies. If these are negative for AFB, then we can r /o active TB -Repeat sputum cultures pending -Continue airborne precautions -Pulmonology following HTN--stable -Hold Benicar for now due to worsening creatinine -Continue hydralazine 10 mg PO TID Acute on chronic kidney disease stage III--unknown baseline -Creatinine 1.4 on arrival -Creatinine 1.7 on 02/18 -Hold Benicar and avoid nephrotoxic agents Elevated troponin--stable. Pt asymptomatic -Troponin peaked at 0.598 -Echo did not show signs of ischemia or wall motion abnormalities -Cardiology: consider stress test when stable from pulm standpoint, but no further cardiac work up at this time HLD/CAD -Continue atorvastatin 40 mg PO qd and ASA 81 mg PO qd DVT prophylaxis -Xarelto -SCDs Code Status -Level I, FULL RESUSCITATION STATUS Dispo -Waiting for TB to be ruled out/cleared by pulmonology for discharge (Milagros Lundy ., PA-C) I agree with PA assessment and plan and have seen and examined pt myself Awaiting TB final cx results Can not fully r/o TB Labs and imaging reviewed Cont PE/DVT tx at this time Pt frustrated with being here Otherwise stable at this time Appreciate ID and pulm recs (Zac Stinson, D.O.)
[2017-02-18 13:36] LABS: QUANTIF TB AG-NIL 0.01 IU/ML; QUANTIFERON NIL 0.05 IU/ML
[2017-02-19 03:56] VITALS: BP 152/88; PULSE 62; TEMP 36.5; O2SAT 94
[2017-02-19 06:06] LABS: HEMATOCRIT 41.5 % (42-52); MEAN CELL VOLUME 89.2 fL (80-100); MEAN CORPUSCULAR HGB CONC 34.7 g/dl (32-36); MEAN PLATELET VOLUME 9.5 fL (7.4-10.4); PLATELET COUNT 232 K/uL (130-400); RED BLOOD COUNT 4.65 M/uL (4.7-6.1); WHITE BLOOD COUNT 6.52 K/uL (4.8-10.8)
[2017-02-19 06:25] LABS: PARTIAL THROMBOPLASTIN RATIO 1.2
[2017-02-19 06:42] LABS: BUN/CREATININE RATIO 21.5 (10-20); CALCIUM 8.5 mg/dl (8.5-10.1); CREATININE 1.5 mg/dl (0.60-1.40); POTASSIUM 3.5 mmol/L (3.5-5.1)
[2017-02-19] MEDS: ASPIRIN 81 MG ECTAB PO SCH (07:25)
[2017-02-19] MEDS: ATORVASTATIN 40 MG TAB PO SCH (07:25)
[2017-02-19] MEDS: RIVAROXABAN TAB 15 MG TAB PO SCH ×2 (07:25→16:45)
[2017-02-19] MEDS: HydrALAZINE 10 MG TAB PO SCH ×2 (07:25→13:25)
[2017-02-19 07:27] VITALS: BP 162/104; PULSE 58; TEMP 36.5; O2SAT 98
[2017-02-19] MEDS: BENICAR HCT PO SCH (07:30)
[2017-02-19 08:01] VITALS: O2SAT 95
[2017-02-19 12:04] VITALS: BP 119/77; PULSE 64; TEMP 36.6; O2SAT 96
[2017-02-19 12:12] VITALS: O2SAT 95
--- NOTE | 2017-02-19 12:38 | PULMONARY PROGRESS NOTE ---
DATE: 02/19/2017 TIME: 12 noon. SUBJECTIVE: The patient feels well. He is still coughing a small amount of blood mixed with mucus. He is not having any shortness of breath like he was when he first presented. He is not having chills, fevers or sweats. His appetite has improved significantly. OBJECTIVE: GENERAL: The patient appears comfortable at rest. His was present during this evaluation. VITAL SIGNS: Temperature is 36.5. Blood pressure is elevated at 162/104. HEENT: He has a small amount of blood in the nostrils. HEART: Heart rate was 58 per minute. The rhythm was somewhat irregular with extrasystoles being heard. LUNGS: Lung almazan revealed somewhat unilateral wheeze and/or rhonchi on the right side, which is both inspiration and expiration. The oxygen saturation on room air is 95%. The respiratory rate is 20 breaths per minute and not labored. EXTREMITIES: Showed no cyanosis, clubbing or edema. LABORATORY DATA: White count today is 6.52. Hemoglobin is 14.4. Platelets are 232,000. Electrolytes show sodium 143, potassium 3.5, chloride 106, and bicarbonate 28. The BUN was 32 with a creatinine of 1.5. The TB QuantiFERON Gold study came back negative. Review of the patient's sputums for AFB shows a negative study from February 18 and February 17 and bronchial washings are negative for AFB from February 15. Bronchial washings are showing normal nancy as did sputum. The patient had bronchial washings, which showed no evidence of malignancy. Transbronchial biopsy of the right lower lobe showed benign bronchoalveolar tissue with associated acute and chronic inflammation. No granulomatous inflammation was seen. No malignant cells were seen. Features of organizing pneumonitis were not identified. IMPRESSIONS: 1. Acute pulmonary embolism -- recurrent. 2. Deep venous thrombosis involving the right lower extremity. 3. Hemoptysis. 4. Extensive right lung infiltrate involving right lower lobe and right middle lobe. COMMENTS AND RECOMMENDATIONS: The respiratory isolation can be discontinued in light of the negative sputums, bronchial washings, and a negative QuantiFERON gold. I believe that the patient should be treated with antibiotic therapy. It does not appear that he has had significant antibiotics. I do not have an objection to discharge. The patient is extremely anxious to be discharged as soon as possible. He is not having symptoms at present. That would be with the exception of the hemoptysis. He should follow up with Dr. Cavanaugh in about 2 weeks. He should have a chest x-ray done just prior to that visit. The patient asked about returning to his normal exercise regimen. I explained to him my opinion is that he should take things slowly and not push significant exertion as of yet. We still do not know what the sources for the infiltrates. Thus, we do not have a definite answer to his problem and this was explained to the patient. It does appear he will need long-term anticoagulation.
[2017-02-19 13:05] LABS: ANTITHROMBINIII ACTIVITY** 81 % activity (80-120); B2 GLYCOPROTEIN IGA 16 SAU (<=20); B2 GLYCOPROTEIN IGG <9 SGU (<=20); B2 GLYCOPROTEIN IGM <9 SMU (<=20); LUPUS ANTICOAGULANT** TC36573X Positive (Negative); PROTEIN C ACTIVITY** TC 1777X 82 % (70-180); PROTEIN S ACT(FUNCT)**1779X 102 % (70-150)
[2017-02-19] MEDS ORDERED: XRL15 PO (14:02)
[2017-02-19] MEDS ORDERED: ASPEC81 PO (14:02)
[2017-02-19] MEDS ORDERED: LEVO750T23 PO (14:02)
[2017-02-19] MEDS ORDERED: LPT40 PO (14:02)
--- NOTE | 2017-02-19 14:52 | Discharge Instructions ---
Discharge Instructions Date of Service Feb 19, 2017. Admission Reason for Admission: Acute Sob,Elevated Troponin Discharge Discharge Diagnosis / Problem: Acute pulmonary embolism, deep vein thrombosis, pneumonia Discharge Goals Goal(s): Decrease discomfort, Improve function, Diagnostic testing, Therapeutic intervention Activity Recommendations Activity Limitations: resume your previous activity (as tolerated) . Instructions / Follow-Up Instructions / Follow-Up You were admitted to the hospital after presenting with shortness of breath and hemoptysis (coughing blood). You were found to have another acute pulmonary embolism and acute deep vein thrombosis (DVT) in the right leg. You were first anticoagulated on a heparin drip, and then switched to Xarelto, which you have taken in the past. As this is the second occurrence of clotting in the last year, there was a concern for malignancy, particularly of the lung. A procedure called a bronchoscopy was performed, which was normal. The pathology results of biopsies taken from the bronchoscopy did not reveal malignant cells. Other concerning sources of malignancy include the colon and prostate. Please continue your routine screening colonoscopies and PSA levels per your primary care provider. Due to your work/travel history and abnormal findings on the CT scan of the chest, there was a concern for tuberculosis. Your Quantiferon Gold tuberculosis testing has come back negative, as well as 3 negative TB stains. You no longer need to be on isolation precautions. Your CT findings may represent a multifocal pneumonia, and as you are still having a productive cough , you will be treated with oral antibiotics at home. Your blood pressure became elevated while in the hospital. Although elevated, this was adequately controlled for the inpatient setting. You will be restarted on your home blood pressure medication, as well as started on hydralazine, which you were given in the hospital. You will need to follow up with your primary care provider regarding your blood pressure and to see if there should be any changes to your regimen or new medications added. On arrival to the hospital, you had an elevated troponin, which is a cardiac enzyme that is typically released when there is heart damage. Your echocardiogram (ultrasound of the heart) did not show any ischemic changes, or evidence of a lack of blood supply to the heart, and did not show any abnormalities in the movement of the heart. Follow up with your primary care provider, as it may be worth doing an exercise stress test for further cardiac work up. Due to a history of high cholesterol and concern for a possible cardiac event, you were started on a cholesterol-lowering drug called atorvastatin as well as a baby aspirin. Medications: *Please take levofloxacin (Levaquin) 750 mg by mouth every other day for 14 days , for a total of 7 doses. This is an antibiotic for your lung infection. *You have been given a 1 month prescription for Xarelto 15 mg by mouth twice a day to treat your new pulmonary embolism. You will need to be treated for several months and will need to follow up with your primary care provider. *Please take atorvastatin 40 mg by mouth daily for your cholesterol and to help reduce your cardiovascular risk, as well as aspirin 81 mg by mouth daily. *Please take hydralazine 10 mg by mouth three times a day for your blood pressure. *You may continue to take your home Benicar. Follow up: *You have been scheduled to follow up with your primary care provider, Dr. Alves , on February 27 at 1:00 pm regarding your hospital stay and changes to your medications. Please also follow up regarding your blood pressure. *You have been scheduled to follow up with pulmonology with DIAMOND Balbuena on March 07 at 1:15 pm. You were given a script for a chest x-ray to be obtained prior to your appointment. You do not need to schedule an appointment for the x-ray. Please seek medical attention if you experience fevers, chills, sweats, chest pain, shortness of breath, nausea, vomiting, numbness or tingling. Current Hospital Diet Patient's current hospital diet: AHA Diet (Heart Healthy) Discharge Diet Recommended Diet: AHA Diet (Heart Healthy) Procedures Procedures Performed: Bronchoscopy Pending Studies Studies pending at discharge: no Medical Emergencies . Who to Call and When: Medical Emergencies: If at any time you feel your situation is an emergency, please call 911 immediately. . Non-Emergent Contact Non-Emergency issues call your: Primary Care Provider, [employer] Call Non-Emergent contact if: you have a fever, you have any medication questions . Past History Medical & Surgical History: (1) Acute pulmonary embolism (2) Acute DVT (deep venous thrombosis) (3) Pneumonia . "Provider Documentation" section prepared by Milagros Lundy. . VTE Core Measure Inpt VTE Proph given/why not?: Other Anticoagulation (Xarelto), SCD's
[2017-02-19] MEDS ORDERED: APR10 PO (14:53)
--- NOTE | 2017-02-19 15:09 | Discharge Summary ---
Discharge Summary Date of Service Feb 19, 2017. (Milagros Lundy, GIO) Discharge Summary Admission Date: Feb 13, 2017 at 03:22 Discharge Date: Feb 19, 2017 Discharge Disposition: Home Principal Diagnosis: Acute PE, acute RLE DVT, pneumonia Procedures: [facility] [place] [address] Procedure Note Patient Name: NOREEN JUDGE Admit Date: 02/13/17 Med Rec: [id number] Att Phy: Chilango Zavala MD, PhD Acct ID: [id number] [place] Phy: Eliot Alves Date: 1940 Fam Phy: Eliot Alves Age: 76 Location: [facility] [place]: Room/Bed: [facility] CC: Eliot Alves Thomas W., MD *NOTICE TO RECEIVING REPUBLICAN/AGENCY This information is strictly Confidential and protected under [place] law. [place] law prohibits you from making any further disclosure of this information unless further disclosure is expressly permitted by the written consent of the person to whom it pertains or is authorized by law. A general authorization for the release of medical or other information is not sufficient for this purpose. Hospital accepts no responsibility if the information is made available to any other person, INCLUDING THE PATIENT. Bronchoscopy Procedure Note Procedure: Bronchoscopy, conscious sedation, BAL & Tbbx of the RUL (RB6) Consent: Obtained through the patient placed into the chart Pre-procedural diagnosis: HEALTH PROGRAM ANALYST vs. TB. vs. Carcinoma Post-procedural diagnosis: HEALTH PROGRAM ANALYST vs. TB. vs. Carcinoma Start time: 1114 End time: 1145 Total time: 31 minutes Analgesia: 2% liquid lidocaine: Via nebulizer 4% gel lidocaine: Via right naris 2% liquid lidocaine: Via bronchoscopy Sedation: Versed IV: 6 mg Fentanyl IV: 150 g Procedure: The Olympus video bronchoscope was used for this procedure and passed down through the right naris Right naris/posterior naris/posterior oropharynx: Anatomically within normal limits Glottis: Anatomically within normal limits Vocal cords: Proper abduction and abduction, anatomically within normal limits Subglottis/trachea/Mile: Anatomically within normal limits Right bronchial tree: Right mainstem bronchus: Anatomically within normal limits Right upper lobe: Anatomically within normal limits Bronchus intermedius: Anatomically within normal limits Right middle lobe: Anatomically within normal limits Right lower lobe: Anatomically within normal limits Findings: No significant findings noted Left bronchial tree: Left mainstem bronchus: Anatomically within normal limits Left upper lobe: Anatomically within normal limits Lingula: Anatomically within normal limits Left lower lobe: Anatomically within normal limits Findings: No significant findings noted Bronchial alveolar lavage: RB6 80cc with 40cc returned EBL: None Complications: None Follow-up: In the [facility] <Electronically signed by Wai Cavanaugh MD> Signed: 02/15/17 1202 Signed: The status of this report is Signed * If report status is Draft, the document has not been finalized by the responsible provider. MNE: Procedure Note <AttendingPhy>Chilango Zavala MD, PhD</AttendingPhy><EDPhy></EDPhy> <FamilyPhy> Eliot Alves</FamilyPhy> <PrimaryPhy>Eliot Alves</PrimaryPhy><UnitNumber> [id number]</UnitNumber><VisitNumber>[id number]</VisitNumber><PatientName> NOREEN JUDGE</PatientName><DateOfBirth>1940</DateOfBirth><Age>76</Age>< Location>C.MSICU</Location><ServiceDate></ServiceDate><CC>Eliot Alves, Wai Muprhy MD</CC><MNE>PC.BRONC</MNE> Patient Name: NOREEN JUDGE Unit Number: [id number] Dictated: 02/13/171449 Transcribed: 02/13/17 1450 MS Printed Date/Time: [~ rep prt dt]/[~ rep prt tm] [~ rep ct labl] - [~ rep ct ivnm] [facility] [place] [address] Dictated: 02/13/171449 Transcribed: 02/13/17 1450 MS Printed Date/Time: [~ rep prt dt]/[~ rep prt tm] [~ rep ct labl] - [~ rep ct ivnm] Patient: NOREEN JUDGE Address1: [address] [place] [address] Rec: [id number] Address2: Acct ID: [id number] [facility] Zip: [place] [address] Date: 1940 Sex: M Room/Bed: [facility] Ref Phy: Eliot Alves SC: CHARANJITCU Att Phy: Chilango Zavala MD, PhD Report #: [id number] [place] Phy: Eliot Alves Test: LUVQ Admit Phy: Jose Calvert M.D. Anesthesiology Medical Doctor: RIK Interpreting Phy: Ye Quigley M.D. Diagnosis: ACUTE SOB,ELEVATED TROPONIN Ordering Phy: Jose Calvert M.D. Service Date: 02/13/17 Admit Date: 02/13/17 MNE: PWRSCRIBE CONF: DICTATED BY: Ye Quigley M.D.]] CC: Jose Calvert M.D. Lin, Daniel Y., MD, PhD Eliot Alves Endcc: [~ rep ct add3]] NUCLEAR MEDICINE VENTILATION/PERFUSION SCAN CLINICAL HISTORY: Dyspnea COMPARISON: None TECHNIQUE: For the ventilation portion of this exam, 31.3 mCi of DTPA was inhaled at 1:45 PM. Immediately following inhalation, imaging of the chest was carried out in the anterior, posterior, left lateral, right lateral, LPO, RPO, JAD and ANTHONY projections. For the perfusion portion of exam, 5 mCi of technetium 99m MAA was injected IV at 2:42 PM. Immediately following injection, imaging of the chest was carried out in the same projections. FINDINGS: Multiple ventilation/perfusion mismatches throughout both hemithoraces. The appearance is consistent with a high probability of pulmonary embolus. IMPRESSION: High probability of pulmonary embolus. Electronically signed by: Ye Quigley M.D. 02/13/2017 2:57 PM Dictated Date/Time: 02/13/2017 2:50 PM The status of this report is Signed. Draft = Not yet reviewed or approved by Radiologist. Signed = Reviewed and approved by Radiologist. <AttendingPhy>Chilango Zavala MD, PhD</AttendingPhy> <FamilyPhy>Eliot Alves</ FamilyPhy> <PrimaryPhy>Eliot Alves</PrimaryPhy> <UnitNumber>[id number]</ UnitNumber> <VisitNumber>[id number]</VisitNumber> <PatientName>NOREEN JUDGE</ PatientName> <DateOfBirth>1940</DateOfBirth> <Location>C.MSICU</Location> <ServiceDate></ServiceDate> <MNE>ESINDI</MNE> <OrderingPhy>Jose Calvert M.D.</ OrderingPhy> <OrderingPhyMNE>f rep ord dr gomez</OrderingPhyMNE> <DictatingPhyMNE> f rep dict dr gomez</DictatingPhyMNE> <CCListMNE>f rep ct mne</CCListMNE> < AdmittingPhyMNE>f pt admit dr gomez</AdmittingPhyMNE> <AttendingPhyMNE>f pt attend dr gomez</AttendingPhyMNE> <ConsultingPhyMNE>f pt consult dr gomez</ConsultingPhyMNE> <FamilyPhyMNE>f pt fam dr gomez</FamilyPhyMNE> <OtherPhyMNE>f pt other dr gomez</OtherPhyMNE> < PrimaryPhyMNE>f pt prim care dr gomez</PrimaryPhyMNE> <ReferringPhyMNE>f pt referring dr gomez</ReferringPhyMNE> Patient Name: NOREEN JUDGE Unit Number: [id number] Dictated: 02/13/171840 Transcribed: 02/13/171840 DAGOBERTO Printed Date/Time: [~ rep prt dt]/[~ rep prt tm] [~ rep ct labl] - [~ rep ct ivnm] [facility] [place] [place] [address] Dictated: 02/13/171840 Transcribed: 02/13/171840 DAGOBERTO Printed Date/Time: [~ rep prt dt]/[~ rep prt tm] [~ rep ct labl] - [~ rep ct ivnm] Patient: NOREEN JUDGE Address1: [address] [facility] Rec: [id number] Address2: Acct ID: [id number] [facility] Zip: [place] [address] Date: 1940 Sex: M Room/Bed: E105-1 Ref Phy: Eliot Alves SC: CFlorenciaMSICU Att Phy: Chilango Zavala MD, PhD Report #: [id number] [place] Phy: Long Eliot Test: CXWO Admit Phy: Jose Calvert M.D. Anesthesiology Medical Doctor: BREONNA Interpreting Phy: Collin Lee MD Diagnosis: ACUTE SOB,ELEVATED TROPONIN Ordering Phy: Wai Cavanaugh MD Service Date: 02/13/17 Admit Date: 02/13/17 MNE: PWRSCRIBE CONF: DICTATED BY: Collin Lee MD]] CC: Chilango Zavala MD, PhD Eliot Alves Thomas W., MD Endcc: [~ rep ct add3]] CT OF THE CHEST WITHOUT IV CONTRAST CLINICAL HISTORY: Abnormal CXR and PE seen on V/Q COMPARISON STUDY: Chest radiograph performed earlier today. CT DOSE: 994.60 mGy.cm TECHNIQUE: Axial images of the chest were obtained without IV contrast. Images were reviewed in the axial, sagittal, and coronal planes. IV contrast was not administered for this examination. FINDINGS: No enlarged axillary, mediastinal or hilar lymph nodes are identified on this unenhanced examination. Mild dilatation of the ascending aorta is noted, measuring 4 cm at the level the main pulmonary artery. Mild cardiomegaly is noted. There is no pericardial effusion. No pneumothorax or pleural effusion is present. There is dense consolidation within the superior segment of the right lower lobe with air bronchograms as well as consolidation within the right middle lobe. Patchy airspace opacities are noted within both upper lobes. There is no cavitation. Central airways are patent. No central obstructing lesion is identified. Mixed lucent and sclerotic lesion within T1 vertebral body extending into the right pedicle, lamina is noted. Severe arthritis of both glenohumeral joints is noted. Visualized portions of the upper abdomen demonstrate symmetric bilateral perinephric infiltration and moderate right renal atrophy. IMPRESSION: 1. Multifocal consolidation within the superior segment of the right lower lobe and right middle lobe with patchy bilateral upper lobe airspace opacities. No central obstructing mass. No cavitation. The findings favor multifocal pneumonia. Radiographic follow to ensure resolution is recommended. 2. No thoracic lymphadenopathy. 3. Mixed lucent and sclerotic lesion within the T1 vertebra. This is indeterminate although may reflect a hemangioma or Paget's. Electronically signed by: Collin Lee M.D. 02/13/2017 6:53 PM Dictated Date/Time: 02/13/2017 6:41 PM The status of this report is Signed. Draft = Not yet reviewed or approved by Radiologist. Signed = Reviewed and approved by Radiologist. <AttendingPhy>Chilango Zavala MD, PhD</AttendingPhy> <FamilyPhy>Eliot Alves</ FamilyPhy> <PrimaryPhy>Eliot Alves</PrimaryPhy> <UnitNumber>[id number]</ UnitNumber> <VisitNumber>[id number]</VisitNumber> <PatientName>NOREEN JUDGE</ PatientName> <DateOfBirth>1940</DateOfBirth> <Location>C.MSICU</Location> <ServiceDate></ServiceDate> <MNE>ESINDI</MNE> <OrderingPhy>Wai Cavanaugh MD</OrderingPhy> <OrderingPhyMNE>f rep ord dr gomez</OrderingPhyMNE> < DictatingPhyMNE>f rep dict dr gomez</DictatingPhyMNE> <CCListMNE>f rep ct mne</ CCListMNE> <AdmittingPhyMNE>f pt admit dr gomez</AdmittingPhyMNE> <AttendingPhyMNE >f pt attend dr gomez</AttendingPhyMNE> <ConsultingPhyMNE>f pt consult dr gomez</ConsultingPhyMNE> <FamilyPhyMNE>f pt fam dr gomez</FamilyPhyMNE> <OtherPhyMNE>f pt other dr gomez</OtherPhyMNE> < PrimaryPhyMNE>f pt prim care dr gomez</PrimaryPhyMNE> <ReferringPhyMNE>f pt referring dr gomez</ReferringPhyMNE> Patient Name: NOREEN JUDGE Unit Number: [id number] Dictated: 02/13/171838 Transcribed: 02/13/171838 JA Printed Date/Time: [~ rep prt dt]/[~ rep prt tm] [~ rep ct labl] - [~ rep ct ivnm] [facility] [place] [place] [address] Dictated: 02/13/171838 Transcribed: 02/13/171838 JA Printed Date/Time: [~ rep prt dt]/[~ rep prt tm] [~ rep ct labl] - [~ rep ct ivnm] Patient: NOREEN JUDGE Address1: [address] [facility] Rec: [id number] Address2: Acct ID: [id number] [facility] Zip: [place] [address] Date: 1940 Sex: M Room/Bed: [facility] Ref Phy: Eliot Alves SC: PUMA Att Phy: Chilango Zavala MD, PhD Report #: [id number] [place] Phy: Eloit Alves Test: VDLEB Admit Phy: Jose Calvert M.D. Anesthesiology Medical Doctor: SMITA Interpreting Phy: Collin Lee MD Diagnosis: ACUTE SOB,ELEVATED TROPONIN Ordering Phy: Chilango Zavala MD, PhD Service Date: 02/13/17 Admit Date: 02/13/17 MNE: PWRSCRIBE CONF: DICTATED BY: Collin Lee MD]] CC: Chilango Zavala MD, PhD Eliot Alves Endcc: [~ rep ct add3]] BILATERAL LOWER EXTREMITY VENOUS DOPPLER CLINICAL HISTORY: Acute shortness of breath. COMPARISON STUDY: No previous studies for comparison. TECHNIQUE: Sonography of the deep venous system of the bilateral lower extremities was performed. Compression and augmentation were evaluated. FINDINGS: There is extensive deep venous thrombus within the right lower extremity with thrombus within the right common femoral, femoral, popliteal, posterior tibial, peroneal and anterior tibial veins. Several these vessels are expanded. Thrombus within the femoral and popliteal veins appears occlusive. There is no deep venous thrombus within the left lower extremity. IMPRESSION: 1. Extensive deep venous thrombus within the right lower extremity, as described above. 2. No deep venous thrombus within the left lower extremity. Electronically signed by: Collin Lee M.D. 02/13/2017 6:41 PM Dictated Date/Time: 02/13/2017 6:39 PM The status of this report is Signed. Draft = Not yet reviewed or approved by Radiologist. Signed = Reviewed and approved by Radiologist. <AttendingPhy>Chilango Zavala MD, PhD</AttendingPhy> <FamilyPhy>Eliot Alves</ FamilyPhy> <PrimaryPhy>Eliot Alves</PrimaryPhy> <UnitNumber>[id number]</ UnitNumber> <VisitNumber>[id number]</VisitNumber> <PatientName>NOREEN JUDGE</ PatientName> <DateOfBirth>1940</DateOfBirth> <Location>C.MSICU</Location> <ServiceDate></ServiceDate> <MNE>ESINDI</MNE> <OrderingPhy>Chilango Zavala MD, PhD </OrderingPhy> <OrderingPhyMNE>f rep ord dr gomez</OrderingPhyMNE> < DictatingPhyMNE>f rep dict dr gomez</DictatingPhyMNE> <CCListMNE>f rep ct mne</ CCListMNE> <AdmittingPhyMNE>f pt admit dr gomez</AdmittingPhyMNE> <AttendingPhyMNE >f pt attend dr gomez</AttendingPhyMNE> <ConsultingPhyMNE>f pt consult dr gomez</ConsultingPhyMNE> <FamilyPhyMNE>f pt fam dr gomez</FamilyPhyMNE> <OtherPhyMNE>f pt other dr gomez</OtherPhyMNE> < PrimaryPhyMNE>f pt prim care dr gomez</PrimaryPhyMNE> <ReferringPhyMNE>f pt referring dr gomez</ReferringPhyMNE> Consultations: Pulmonology--Dr. Cavanaugh/Dr. Telles Cardiology--Dr. Mehta (Milagros Lundy, PA-C) Medication Reconciliation New Medications: Levofloxacin (Levaquin) 750 Mg Tab 1 TAB PO Q2D for 14 Days, #7 TAB Take 1 tablet by mouth every other day. First dose 02/19/17. Aspirin (Aspirin EC Low Dose) 81 Mg Ectab 81 MG PO QAM for 30 Days, #30 TABS Atorvastatin (Atorvastatin Calcium) 40 Mg Tab 40 MG PO QAM for 30 Days, #30 TAB Hydralazine HCl (Hydralazine HCl) 10 Mg Tab 10 MG PO TID for 30 Days, #90 TAB Rivaroxaban (Xarelto) 15 Mg Tab 15 MG PO BIDM for 30 Days, #60 TAB Continued Medications: Olmesartan/Hctz (Benicar Hct 40/12.5) Tab 1 TAB PO DAILY, TAB Discharge Exam Patient feeling well and eager for discharge. No SOB or wheezing. Still with some intermittent hemoptysis but improved in frequency and quantity. The patient denies fevers, chills, sweats, chest pain, palpitations, claudication, wheezing, shortness of breath, nausea, vomiting, abdominal pain, dysuria, hematuria, urinary retention, paralysis, weakness, numbness and tingling. Review of Systems: Constitutional: No fever, No chills, No sweats Eyes: No worsening of vision, No eye pain, No diplopia ENT: No hearing loss, No sore throat, No trouble swallowing Respiratory: + cough, + hemoptysis, No wheezing, No shortness of breath Cardiovascular: No chest pain, No claudication, No palpitations Abdomen: No pain, No nausea, No vomiting Musculoskeletal: No joint pain, No muscle pain, No calf pain Genitourinary - Male: No hematuria, No dysuria, No urinary retention Neurologic: No paralysis, No weakness, No numbness/tingling Integumentary: No rash, No itch, No color change Physical Exam: General Appearance: WD/WN, no apparent distress, + obese Eyes: normal inspection, PERRL, EOMI ENT: normal ENT inspection, hearing grossly normal, pharynx normal Neck: supple, no JVD, trachea midline Respiratory/Chest: lungs clear, normal breath sounds, no respiratory distress Cardiovascular: regular rate, rhythm, no gallop, no murmur Abdomen / GI: normal bowel sounds, non tender, soft Extremities: normal inspection, no calf tenderness, no pedal edema Neurologic/Psychiatric: alert, normal mood/affect, oriented x 3 Skin: normal color, warm/dry, no rash (Milagros Lundy ., GIO) Hospital Course 76 y/o male with a history of HTN, HLD, CKD stage III and h/o DVT and a PE 9 months ago who was transferred form [facility] for progressive SOB. Associated hemoptysis. Pt also found to have elevated troponin on arrival. He received full dose Lovenox at [facility] prior to transfer. Acute PE and acute right lower extremity DVT--stable -Admitted to telemetry. No acute events overnight, pt remained in SR/sinus bradycardia with HR 50s-60s -H/o DVT/PE 9 months ago, treated with Xarelto for 6 months. Now second PE in 1 year, concerning for malignancy -V/Q scan high probability of PE -Was on Lovenox, then heparin drip -Continue Xarelto 15 mg PO BID. D/c'd with one month supply, will need another 6 months at least. F/u with PCP ?Tuberculosis/abnormal CT findings vs round PNA POA--stable -Pt frequently travels to [place] for work, risk of active TB -Bronchoscopy showed no significant findings. Pathology negative for malignant cells. Transbronchial biopsy pathology did show acute and chronic inflammation. -3 negative acid fast bacilli stains, Quantiferon Gold testing negative -Pulmonology consulted, appreciate recs: May discontinue airborne precautions/ isolation due to negative testing as above. Okay for d/c. Recommend course of antibiotics. F/u with Dr. Cavanaugh in 2 weeks with CXR prior to appt. Lifelong anticoagulation. -Mycobacterium sputum/bronchial cultures pending, take 43 days to grow -On discharge, Levaquin 750 mg PO q48h due to renal dosing, total of 7 doses HTN--stable -Creatinine improving on discharge -Continue home Benicar, but f/u with PCP regarding creatinine/renal function -Continue hydralazine 10 mg PO TID on discharge due to persistent HTN while inpt Acute on chronic kidney disease stage III--unknown baseline -Creatinine 1.4 on arrival -Creatinine 1.7 on 02/18, down to 1.5 on 02/19 Elevated troponin--stable. Pt asymptomatic -Troponin peaked at 0.598 -Echo did not show signs of ischemia or wall motion abnormalities -Cardiology: consider stress test when stable from pulm standpoint, but no further cardiac work up at this time. F/u with PCP HLD/CAD -Continue atorvastatin 40 mg PO qd and ASA 81 mg PO qd on discharge DVT prophylaxis -Xarelto -SCDs Code Status -Level I, FULL RESUSCITATION STATUS Dispo -D/C to home -F/u with PCP 02/27 -F/u with pulm 03/07 w/CXR prior Total Time Spent: Greater than 30 minutes This includes examination of the patient, discharge planning, medication reconciliation, and communication with other providers. (Milagros Lundy ., PA-C) I agree with PA assessment and plan and have seen and examined the pt myself VSS Labs reviewed Unlikely TB as quantiferon and AFB neg Appreciate pulm recs Still having blood tinged sputum Agree with levaquin on discharge Remove isolation precautions Stable for discharge (Zac Stinson, D.OFlorencia) Discharge Instructions Please refer to the electronic Patient Visit Report (Discharge Instructions) for additional information. (Milagros Lundy ., PA-C) Additional Copies To Eliot Alves
[2017-02-19 15:26] VITALS: BP 119/77; PULSE 64; TEMP 36.6; O2SAT 95
--- NOTE | 2017-03-02 07:28 | Progress Note ---
Subjective Date of Service: Feb 16, 2017. Subjective Pt evaluation today including: conversation w/ patient, conversation w/ family , physical exam, chart review, lab review, review of studies, conversation w/ ergonomics consultant, review of inpatient medication list doing ok, anxious, eager to go home, BP is elevated Review of Systems Constitutional: + weakness, + fatigue, No fever, No chills, No sweats, No weight loss, No problem reported Eyes: No worsening of vision, No eye pain, No redness, No discharge, No diplopia ENT: No hearing loss, No unusual epistaxis, No nasal symptoms, No sore throat, No tinnitus, No dental problems, No trouble swallowing Respiratory: No cough, No sputum, No wheezing, No shortness of breath, No dyspnea on exertion, No dyspnea at rest, No hemoptysis Cardiac: No chest pain, No orthopnea, No PND, No edema, No claudication, No palpitations Abdomen: No pain, No nausea, No vomiting, No diarrhea, No constipation Musculoskeletal: No joint pain, No muscle pain, No swelling, No calf pain Male : No dysuria, No urinary frequency, No incontinence, No nocturia more than once/night, No slowing stream, No hematuria Neurologic: No memory loss, No paralysis, No weakness, No numbness/tingling, No vertigo, No balance problems Psychiatric: + anxiety, No depression symptoms, No anhedonism, No insomnia, No substance abuse Heme: No abnormal bleeding/bruising, No clotting problems, No swollen lymph nodes, No night sweats Endo: No fatigue, No excessive thirst, No excessive urination Skin: No rash, No itch, No new/changing skin lesions, No color change, No bleeding Objective Physical Exam General Appearance: WD/WN, no apparent distress Eyes: normal inspection, PERRL, EOMI, sclerae normal ENT: normal ENT inspection, hearing grossly normal, pharynx normal Neck: supple, no adenopathy, thyroid normal, no JVD, no carotid bruits, trachea midline Respiratory/Chest: chest non-tender, normal breath sounds, no respiratory distress, no accessory muscle use, + decreased breath sounds Cardiovascular: regular rate, rhythm, no edema, no gallop, no JVD, no murmur Abdomen: normal bowel sounds, non tender, soft, no organomegaly, no pulsatile mass Extremities: normal range of motion, non-tender, normal inspection, no pedal edema, no calf tenderness, normal capillary refill, pelvis stable Neurologic/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 initial labs obtained at [place] reveled an elevated troponin. The pt was slated to be transferred to [place] for evaluation by a mine manager however his insisted that he come to [facility]. Although a PE is certainly in the differential, the pts suffers from CKD and a CTA was not obtained. The pt received full-dose Lovenox at [place]. His hemoptysis appears to have resolved regardless. Acute PE and right lower extremity DVT: Continue stable hx of DVT and PE 9 months prior, treated with Xarelto for 6 mo. was placed on full-dose Lovenox, and theN heparin Restart Xarelto after [facility] Recurrent PE/DVT, need to rule out underlined malignancy, TODAY recommend patient to follow-up with PCP to have ALL maintain physical examination updated. Possible Tuberculosis the director hospice operations basic Relevant travel/work history along with clinic hx patient is moderate to high risk for active TB. continue sputum collections but director hospice operations perform bronchoscopy for TB and infiltrate evaluation WELL Per pulm: this time we have one negative AFB stain. We are still waiting on obtaining more appropriate AFB sputum samples. If the patient's transbronchial biopsies also come back negative for AFB those will be acceptable for rule out active tuberculosis. 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 Per recommend of mine manager when the patient is stable from a pulmonary and respiratory standpoint could consider performing a stress test to evaluate for stress induced myocardial ischemia, no indication for any urgent or emergent cardiac catheterization procedure. Has told patient about this. Full code -heparin for DVT px, which is on hold now, SCD for DVT prophylaxis can be discharged to home after cleared by director hospice operations for the TB d/w and RN this note is for 02/16/[address] [facility] stay due to: multiple IV medications needed Discharge planning: home
[2017-03-13 08:12] LABS: HERPES SIMPLEX CULT SOURCE RESPIRATORY-RLL BAL; HERPES SIMPLEX VIRUS CULT NOT ISOLATED (NOT ISOLATED)
== END 2017-02-19 15:57 | disposition home or self-care (01) | DRG 264 ==
LOC: UNDOADMIN 03:22 → C.MSICU 03:22 → C.2T 02-15 20:30 → C.MSICU 02-15 20:30
PROVIDERS: ADMIT Internal Medicine; ATTEND Hospitalist
PROC: 0B9F8ZX Drainage of Right Lower Lung Lobe, Via Natural or Artificial Opening Endoscopic, Diagnostic (ICD-10-PCS; principal; 2017-02-15)
PROC: 0BBF8ZX Excision of Right Lower Lung Lobe, Via Natural or Artificial Opening Endoscopic, Diagnostic (ICD-10-PCS; principal; 2017-02-15)
DX: I82.401 Acute embolism and thrombosis of unspecified deep veins of right lower extremity (principal); I26.99 Other pulmonary embolism without acute cor pulmonale; J18.9 Pneumonia, unspecified organism; N17.9 Acute kidney failure, unspecified; R04.2 Hemoptysis; M17.0 Bilateral primary osteoarthritis of knee; M19.012 Primary osteoarthritis, left shoulder; M19.011 Primary osteoarthritis, right shoulder; E78.5 Hyperlipidemia, unspecified; I12.9 Hypertensive chronic kidney disease with stage 1 through stage 4 chronic kidney disease, or unspecified chronic kidney disease; N18.3 Chronic kidney disease, stage 3 (moderate); I25.10 Atherosclerotic heart disease of native coronary artery without angina pectoris; Z86.711 Personal history of pulmonary embolism; Z86.718 Personal history of other venous thrombosis and embolism; Z91.048 Other nonmedicinal substance allergy status; Z82.49 Family history of ischemic heart disease and other diseases of the circulatory system; Z79.82 Long term (current) use of aspirin; Z79.899 Other long term (current) drug therapy; E66.9 Obesity, unspecified; Z68.31 Body mass index [BMI] 31.0-31.9, adult

== ENCOUNTER 2019-07-17 04:51 | Inpatient (IN) ==
--- NOTE | 2019-06-15 16:28 | PAT Medication Instructions ---
Medication Instructions Date of Service June 15, 2019 Home Medications Xarelto 20 mg PO QAM allopurinol 300 mg PO QPM ascorbic acid (vitamin C) [Vitamin C] 1 g PO BID carvedilol 6.25 mg PO BID cholecalciferol (vitamin D3) [Vitamin D3] 1,000 unit PO BID losartan 100 mg PO QAM turmeric 400 mg PO QAM ASK your prescriber and surgeon Xarelto 20 mg PO QAM (patient made aware that in order for spinal anesthesia, Xarelto needs to be held 72 hours/3 days prior to surgery. Patient voiced understanding/will check if okay with prescriber) STOP taking 2 weeks before surgery (or as soon as possible if surgery is within 2 weeks) turmeric 400 mg PO QAM DO NOT take the morning of surgery ascorbic acid (vitamin C) [Vitamin C] 1 g PO BID cholecalciferol (vitamin D3) [Vitamin D3] 1,000 unit PO BID losartan 100 mg PO QAM Take morning of surgery With a small sip of water, OTHERWISE NOTHING TO EAT OR DRINK AFTER MIDNIGHT: carvedilol 6.25 mg PO BID Take evening before surgery allopurinol 300 mg PO QPM ascorbic acid (vitamin C) [Vitamin C] 1 g PO BID carvedilol 6.25 mg PO BID cholecalciferol (vitamin D3) [Vitamin D3] 1,000 unit PO BID Other Notes If you have any questions please call us at [phone] or [phone] or [phone] or [phone]
--- NOTE | 2019-06-16 12:32 | Anesthesiology Consultation ---
Date of Service June 16, 2019 Assessment & Plan (1) Encounter for pre-operative examination: - Hx of glidescope intubation: Right TSA: 08/18/18: Grade view 1, Glidescope #4, ETT 8.0 at [facility]. Subsequent Left hydrocelectomy: 01/03/19: LMA#5 at [facility]. Elevated BP in preop s/p multiple IV sticks- BP improved and brought to OR/surgery done without issue. No complications per anesthesia post-op note. - Xarelto instructions: Patient made aware that in order for spinal anesthesia Xarelto needs to be held 72 hours/3 days prior to surgery. Patient voiced understanding/will check if okay with prescriber. - Cardio: 12/04/18: no cardiac complaints. ECHO updated 11/2018 and reviewed. Chart Review Chart Review: Pending: Refer to Additional Notes / Consult section (pending preop testing (labs, EKG, CXR)) and Patient seen in Pre Admission Testing Teaching & Discussion Pre-Anesthesia Teaching/Discussion Notes: Instructed NPO after midnight before surgery,except medications with 15 cc of water. Medication instructions provided according to the PAT guidelines. History Surgery Operation Date: 07/17/19 12:10 Proposed Procedures p Right Anterior Total Hip Arthroplasty - Keshav Mckeon, Height/Weight Height: 5 ft 7 in Weight: 95.9 kg Allergies Allergy/AdvReac Type Severity Reaction Status Date / Time coffee (Coffea arabica) Allergy Mild SINUS Verified 06/05/19 08:57 CONGESTION chocolate flavor AdvReac Mild SINUS Verified 06/05/19 08:57 CONGESTION WITH CHOCOLATE Medications Home Medications Medication Instructions Recorded Confirmed Last Taken Xarelto 20 mg PO QAM 12/15/18 06/05/19 12/26/18 07:30 allopurinol 300 mg PO QPM 12/15/18 06/05/19 12/28/18 22:00 ascorbic acid (vitamin C) [Vitamin 1 g PO BID 12/15/18 06/05/19 12/28/18 22:30 C] carvedilol 6.25 mg PO BID 12/15/18 06/05/19 12/29/18 06:30 cholecalciferol (vitamin D3) 1,000 unit PO BID 12/15/18 06/05/19 12/28/18 22:30 [Vitamin D3] losartan 100 mg PO QAM 12/15/18 06/05/19 12/28/18 07:30 turmeric 400 mg PO QAM 12/15/18 06/05/19 12/15/18 Past Medical History Medical History Chronic kidney disease STAGE III DVT (deep venous thrombosis) RLE DVT/PE (2+ years ago)- ON XARELTO Gout History of kidney stones Hypertension Obesity Osteoarthritis Pulmonary embolism RLE DVT/PE (2+ years ago)- ON XARELTO Exercise / Class Metabolic Activity II 4-5 Yardwork/Stairs/Walk up hill Past Family History Family History Father Family history of diabetes mellitus Past Surgical History Surgical History History of difficult intubation RIGHT TSA= 08/18/18= GRADE VIEW 1, GLIDESCOPE 4, ETT 8.0 AT [facility] History of colonoscopy History of cystoscopy WITH STENT (SUBSEQUENT REMOVAL) History of hydrocelectomy History of tonsillectomy History of total shoulder replacement RIGHT TSA Past Anesthesia History Difficult Airway (RIGHT TSA= 08/18/18= GRADE VIEW 1, GLIDESCOPE 4, ETT 8.0 AT [facility]), No Family Hx of Anesthesia Complications and Other Left hydrocelectomy: 01/03/19: LMA#5 at [facility]. Elevated BP in preop s/p multiple IV sticks- BP improved and brought to OR/surgery done without issue. No complications per anesthesia post-op note. History of PONV No Hx of PONV and Hx of Motion Sickness Social History Smoking Status: Never smoker Do You Dip or Chew Tobacco: No Hx Alcohol Use: Yes Alcohol type: wine alcohol intake frequency: a few times a month Hx Substance Use: No substance use type: does not use Review of Systems Occasional sinus congestion felt 2/2 allergies. Patient denies chest pain, shortness of breath, dyspnea on exertion, cough, wheezing, palpitations. Physical Exam Vital Signs VITALS BP 157/90 P 55 (chronic bradycardia; asymptomatic) TEMP 97.5 SP02 96%RA RESP 16 PHYSICAL Full neck and c-spine range of motion. Full TMJ range of motion. TMD 4 finger breaths Mallampati Score 4 (small oral opening) Dentition: missing side, upper left side "posts" Lungs: clear throughout to auscultation Cardiac: regular rate and rhythm, no murmurs noted Spine: normal Carotid arteries: negative bruit Extremities: no edema Testing Echocardiogram Date: 12/04/18 "Normal left ventricular wall motion and ejection fraction in the range of 55%, left ventricular hypertrophy; dense sclerotic changes involving both the aortic and mitral valve leaflets; and mild mitral, tricuspid, and aortic valvular insufficiency." (per 12/04/18 cardio office visit note; multiple attempts to obtain official report unsuccessful) Stress Test Date: 10/01/17 Type: exercise Inconclusive but probably negative ECG stress test. 83% MPHR. 7.0 METS. No chest pain. No ST/T wave changes with exercise. Aggressive risk factor modification recommended per cardio.
--- NOTE | 2019-06-16 13:40 | XRay Report ---
XR chest Pre-admission PA/Lat CLINICAL HISTORY: Preoperative chest COMPARISON STUDY: 07/14/2018 FINDINGS: The cardiac and mediastinal contours are normal. There is no evidence of focal pulmonary co nsolidation. There is no evidence of failure. No pleural effusions are visualized.[ IMPRESSION: No active disease in the chest. Electronically signed by: Didier Oliver M.D. 06/16/2019 1:38 PM
[2019-06-16 13:44] LABS: Basophils # (auto) 0.03 K/uL (0-0.2); Basophils % (auto) 0.4 %; Eosinophils # (auto) 0.09 K/uL (0-0.5); Eosinophils % (auto) 1.3 %; Hematocrit (blood only) 37.9 % (42-52); Hemoglobin 12.8 g/dL (14.0-18.0); Immature Granulocytes # (auto) 0.01 K/uL (0.00-0.02); Immature Granulocytes % (auto) 0.1 %; Lymphocytes # (auto) 2.02 K/uL (1.2-3.4); Lymphocytes % (auto) 30.2 %; Mean Corpuscular Hemoglobin 32.7 pg (25-34); Mean Corpuscular Hgb Conc 33.8 g/dL (32-36); Mean Corpuscular Volume 96.9 fL (80-100); Mean Platelet Volume 9.5 fL (7.4-10.4); Monocytes # (auto) 0.59 K/uL (0.11-0.59); Monocytes % (auto) 8.8 %; Neutrophils # (auto) 3.95 K/uL (1.4-6.5); Neutrophils % (auto) 59.2 %; Platelet Count 191 K/uL (130-400); RDW Coefficient of Variation 15.6 % (11.5-14.5); RDW Standard Deviation 55.2 fL (36.4-46.3); Red Blood Count 3.91 M/uL (4.7-6.1); White Blood Count 6.69 K/uL (4.8-10.8)
[2019-06-16 13:52] LABS: INR 1.4 (0.9-1.1); Partial Thromboplastin Ratio 1.2; Partial Thromboplastin Time 31.9 Seconds (21.0-31.0); Prothrombin Time 13.6 Seconds (9.0-12.0)
[2019-06-16 13:56] LABS: BUN Creatinine Ratio 19.7 (10-20); Calcium 9.1 mg/dl (8.5-10.1); Creatinine Clr Calc Pharmacy 44.9 ml/min; Est GFR (African American) 50.5; Est GFR (Non-African American) 43.6
--- NOTE | 2019-07-16 19:39 | History & Physical Report ---
Date of Service July 16, 2019 Assessment & Plan (1) Osteoarthritis of right hip: We will proceed with a right anterior total hip arthroplasty. Postoperatively he will be started back up on Xarelto for DVT prophylaxis. He will be kept overnight in the hospital for postoperative medical management. He plans to use energy physical therapy upon discharge. Present on Admission?: Yes History of Present Illness Chief Complaint: Primary osteoarthritis of the right hip Primary Care Provider: Jc James is a pleasant 79-year-old male who is been dealing with chronic increasing right hip and groin pain. He gets stabbing sensations when he goes up from a seated position. X-rays and clinical examination have been diagnostic for primary osteoarthritis of the right hip. After failing conservative treatment, he has elected to proceed with a right total hip arthroplasty. Allergies Allergy/AdvReac Type Severity Reaction Status Date / Time coffee (Coffea arabica) Allergy Mild SINUS Verified 06/05/19 08:57 CONGESTION chocolate flavor AdvReac Mild SINUS Verified 06/05/19 08:57 CONGESTION WITH CHOCOLATE Home Medications Home Medications Medication Instructions Recorded Confirmed Type Xarelto 20 mg PO QAM 12/15/18 06/05/19 History allopurinol 300 mg PO QPM 12/15/18 06/05/19 History ascorbic acid (vitamin C) [Vitamin 1 g PO BID 12/15/18 06/05/19 History C] carvedilol 6.25 mg PO BID 12/15/18 06/05/19 History cholecalciferol (vitamin D3) 1,000 unit PO BID 12/15/18 06/05/19 History [Vitamin D3] losartan 100 mg PO QAM 12/15/18 06/05/19 History turmeric 400 mg PO QAM 12/15/18 06/05/19 History Past Med/Surg History Medical History Chronic kidney disease STAGE III DVT (deep venous thrombosis) RLE DVT/PE (2+ years ago)- ON XARELTO Gout History of kidney stones Hypertension Obesity Osteoarthritis Pulmonary embolism RLE DVT/PE (2+ years ago)- ON XARELTO Surgical History History of difficult intubation RIGHT TSA= 08/18/18= GRADE VIEW 1, GLIDESCOPE 4, ETT 8.[address] 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 Beliefs That Will Affect Care: None Current Living Situation: Spouse Feels Safe at Home: Yes Smoking Status: Never smoker Do You Dip or Chew Tobacco: No ; Second Hand Exposure: Yes (WAS EXPOSED 10-15 YR AGO) ; Hx Alcohol Use: Yes Alcohol type: wine Hx Substance Use: No Review of Systems All systems reviewed & are unremarkable except as noted in HPI & below Physical Exam Constitutional: WD/WN, vitals as above Eyes: PERRL, conjunctivae normal, anicteric sclerae ENMT: external ear and nose normal, oropharynx normal Neck: trachea midline, no thyromegaly Respiratory: normal respiratory effort Cardiovascular: RRR, no murmur, no edema Gastrointestinal (Abdomen): normal bowel sounds, soft, nontender, no hepatosplenomegaly Musculoskeletal: Physical examination of the right hip reveals decreased range of motion with flexion, internal and external rotation. There is significant groin pain with forced internal rotation of the hip his leg lengths are essen tially equal. Psychiatric: A+Ox3, euthymic affect Results & Data Diagnostic Findings Radiographs of the right hip and pelvis demonstrate advanced osteoarthritis with joint space narrowing osteophyte formation and [id number] articulation.
[2019-07-17] MEDS ORDERED: TRANEXAMIC ACID 1,000 MG **IV Pre-op IV SCH (06:00)
[2019-07-17] MEDS ORDERED: CEFAZOLIN 2000MG 2,000 MG/15 ML SYR IV SCH (06:00)
[2019-07-17] MEDS ORDERED: LR 500ML BOLUS, THEN 15ML/HR IV SCH (06:00)
[2019-07-17] MEDS ORDERED: FAMOTIDINE 20 MG TAB PO SCH (06:00)
[2019-07-17] MEDS ORDERED: ROPIVACAINE 0.5% HCL/PF 150 MG, BUPIVACAINE 0.5% MPF 30 ML, EPINEPHrine 30MG/30ML (OR U... INSTIL SCH (06:00)
[2019-07-17] MEDS ORDERED: LR 60ML/HR IV SCH (06:00)
[2019-07-17] MEDS ORDERED: GABAPENTIN 300 MG CAP PO SCH (06:00)
[2019-07-17] MEDS ORDERED: ACETAMINOPHEN 500 MG TAB PO SCH (06:00)
[2019-07-17] MEDS ORDERED: TRANEXAMIC ACID 1,000 MG **IV Intra-op IV SCH (06:30)
[2019-07-17] MEDS ORDERED: BUPIVACAINE 0.5 % 5 MG/1 ML PF 10ML VIAL ONE (06:33)
[2019-07-17] MEDS ORDERED: fentaNYL citrate 100 MCG/2 ML VIAL ONE (06:43)
[2019-07-17] MEDS ORDERED: MIDAZOLAM HCL 1 MG/ML 2ML VIAL ONE (06:43)
[2019-07-17] MEDS ORDERED: ORTHO JOINT ANESTHETIC ONE (06:44)
--- NOTE | 2019-07-17 06:45 | History & Physical Bridge Note ---
Date of Service July 17, 2019 History & Physical Bridge Note I have examined the patient, reviewed the History & Physical and in the interval since the performance of the History & Physical I have noted the following changes of clinical significance: no changes noted
[2019-07-17] MEDS ORDERED: ACETAMINOPHEN 1000 MG/100 ML IV IV ONE (06:51)
[2019-07-17] MEDS ORDERED: KETAMINE HCL INJ 50 MG/ML 10 ML VIAL ONE (07:30)
[2019-07-17] MEDS ORDERED: HYDROmorphone INJ 2 MG/ML SYR/VIAL ONE (07:33)
[2019-07-17] MEDS ORDERED: DEXAMETHASONE SOD INJ 4 MG/ML VIAL ONE (07:59)
[2019-07-17] MEDS ORDERED: GLYCOPYRROLATE 0.2 MG/ML VIAL ONE (07:59)
[2019-07-17] MEDS ORDERED: NEOSTIGMINE METHYLSULFATE 5 MG/5 ML SYR ONE (07:59)
[2019-07-17] MEDS ORDERED: LIDOCAINE HCL 2% 2 ML VIAL/AMP(20MG/ML) INFIL ONE (07:59)
[2019-07-17] MEDS ORDERED: PROPOFOL IV EMULSION 10 MG/ML 20 ML VIAL IV ONE (07:59)
[2019-07-17] MEDS ORDERED: ROCURONIUM BROMIDE 10 MG/ML 5 ML VIAL ONE (07:59)
[2019-07-17] MEDS ORDERED: ePHEDrine sulfate 50 MG/ML SYR ONE (07:59)
[2019-07-17] MEDS ORDERED: ONDANSETRON INJ 2 MG/ML 2 ML VIAL ONE ×2 (07:59→08:45)
[2019-07-17] MEDS ORDERED: ONDANSETRON INJ 2 MG/ML 2 ML VIAL IV PRN ×2 (08:01→10:43)
[2019-07-17] MEDS ORDERED: ePHEDrine sulfate 50 MG/ML AMP IV PRN (08:01)
[2019-07-17] MEDS ORDERED: HYDROmorphone INJ 1 MG/ML SYRINGE IV PRN (08:01)
[2019-07-17] MEDS ORDERED: fentaNYL citrate 100 MCG/2 ML VIAL IV PRN (08:01)
[2019-07-17] MEDS ORDERED: ATROPINE SULFATE 0.1 MG/ML 10ML SYR IV PRN (08:01)
[2019-07-17] MEDS ORDERED: LARYING-O-JET KIT (LTA) ONE (08:32)
--- NOTE | 2019-07-17 08:32 | Operative Report ---
Post Operative Report Pre & Post Diagnosis Operation Date: 07/17/19 07:00 Pre-Op Diagnosis: Right Hip Degenerative Joint Disease Post-Op Diagnosis: Right Hip Degenerative Joint Disease I identified the patient and participated in the time-out.: Yes Procedure Operation Date: 07/17/19 07:00 Actual Procedures p Right Anterior Total Hip Arthroplasty(Right) - Keshav Mckeon DO Surgeon Keshav Mckeon DO Housekeeping/Laundry Supervisor Keshav Obando PAC Estimated Blood Loss 400 Findings Consistent with Post-Op Diagnosis Specimens Right femoral head Complications none Disposition Disposition: Recovery Room Indications Jacob is a 79-year-old male who presented my office with chronic increasing right hip and groin pain. X-rays and clinical examination were diagnostic for primary osteoarthritis of the right hip. After failing conservative treatment, he elected to proceed with a right anterior total hip arthroplasty. Description of Procedure Implants used Biomet Taperloc total hip arthroplasty system with a size 11 high offset Taperloc stem, a 54 mm G7 cup with a 25mm screw, an E1 polyethylene liner, a 40 mm ceramic head with a 0 neck. Patient arrived at the hospital for the above procedure. They were seen in the preoperative holding area and the operative extremity was identified and signed. They were given a spinal anesthetic. They were given a preoperative antibiotic and TXA. They were taken back To the operating room and laid on the table in the supine position. The leg was brought out through a Puristst leg positioner. The hip was then prepped and draped in sterile fashion. A timeout was done and the patient and the operative extremity was properly identified. An anterior approach was used. Dissection was taken down through the fascia and the tensor muscle belly was retracted laterally and the rectus was retracted medially. The circumflex vessels were identified and ligated. The capsule was then incised and tagged for later repair. The femoral neck was then cut and the femoral head was removed. The acetabulum was exposed. Time was spent doing a complete circumferential labral release. Sequential reaming of the acetabulum up to a size 53 reamer was done. Final reamings were done under fluoroscopy to ensure appropriate version. A Biomet 54 mm G7 cup was then impacted into place. A single 25 mm screw was placed. The E1 polyethylene liner was then snapped into place. Surrounding soft tissues were then injected with 100 cc of an orthopedic pain control cocktail. The proximal femur was then exposed. Sequential broaching up to a size 11 broach was done. Off that broach a size 40 head with a 0 neck was trialed. The hip was reduced and fluoroscopic images showed anatomic alignment of the implants in acceptable length. The broach was removed. The final size 11 high offset Taperloc stem was then impacted into place. A ceramic 40 mm head with a 0 neck was then impacted into place in the hip was reduced. Final fluoroscopic images showed anatomic reduction of the hip. The capsule was then closed with #1 Vicryl suture. A dilute betadyne lavage was then done for 3 minutes. The joint was then irrigated with normal saline solution. The fascia was closed with #1 PDS suture. Skin was closed with 2-0 Vicryl, ana lilia, and a Amber VAC dressing. The patient was then transferred to a hospital bed and taken to the post anesthesia care unit in stable condition. They tolerated the procedure well. I attest to the content of the Intraoperative Record and any orders documented therein. Any exceptions are noted below.
--- NOTE | 2019-07-17 08:54 | Fluoroscopy Report ---
FL hip RT 1V CLINICAL HISTORY: RT ANTERIOR HIP COMPARISON STUDY: None FLUOROSCOPY TIME: 23 seconds NUMBER OF FLUOROSCOPIC IMAGES: 2 FINDINGS: Total right hip prosthetic through an anterior approach IMPRESSION: Total right hip prosthetic through an anterior approach. The above report was generated using voice recognition software. It may contain grammatical, syntax or spelling errors. Electronically signed by: Ye Quigley M.D. 07/17/2019 8:53 AM
--- NOTE | 2019-07-17 09:39 | Anesthesiology Progress Note ---
Date of Service July 17, 2019 Anesthesia Post Procedure Vital Signs Vital Signs: Temp Pulse Pulse Resp BP Pulse Ox 07/17/19 09:30 60 10 L 140/85 100 07/17/19 09:20 61 8 L 140/78 100 07/17/19 09:10 69 20 124/81 97 07/17/19 09:04 36.7 C 69 16 139/85 95 07/17/19 05:39 36.5 C 59 L 18 169/102 H 96 Transfer of Care Handoff Completed per policy Notes Mental Status: alert / awake / arousable and participated in evaluation Patient Amnestic to Procedure: Yes Nausea / Vomiting: adequately controlled Pain: adequately controlled Airway Patency, RR, SpO2: stable & adequate BP & HR: stable & adequate Hydration State: stable & adequate Anesthetic Complications: no major complications apparent and Pt Satisfied with anesthetic care
[2019-07-17] MEDS ORDERED: NALOXONE HCL 0.4 MG/1 ML VIAL/CARP IV PRN (10:43)
[2019-07-17] MEDS ORDERED: BISACODYL 10 MG SUPP PR PRN (10:43)
[2019-07-17] MEDS ORDERED: OXYCODONE HCL IR 5 MG TAB (IMMEDIATE RELEASE) PO PRN (10:43)
[2019-07-17] MEDS ORDERED: HYDROmorphone INJ 0.5 MG/0.5 ML SYR IV PRN (10:43)
[2019-07-17] MEDS ORDERED: METOCLOPRAMIDE HCL INJ 5 MG/ML 2 ML VIAL IV PRN (10:43)
[2019-07-17] MEDS ORDERED: MAGNESIUM HYDROXIDE SUSP 30 ML UDC PO PRN (10:43)
--- NOTE | 2019-07-17 10:46 | XRay Report ---
XR hip 1V RT w pelvis HISTORY: 79 years-old Male IN PACU - A/P PELVIS and LATERAL HIP right hip total joint arthroplasty COMPARISON: Pelvis and right hip radiographs 04/06/2019 TECHNIQUE: AP view of the pelvis with crosstable lateral view of the right hip FINDINGS: Right hip total joint arthroplasty. Lateral skin ana lilia are noted along with expected postsurgical s oft tissue swelling and deep tissue air with surgical drainage catheter. Moderate left hip osteoarthr itis. No acute fracture, dislocation or opaque foreign body identified. IMPRESSION: Satisfactory positioning of the right hip total joint arthroplasty. The above report was generated using voice recognition software. It may contain grammatical, syntax o r spelling errors. Electronically signed by: Mike Sheth M.D. 07/17/2019 10:45 AM
[2019-07-17] MEDS: KETOROLAC TROMETHAMINE 15 MG/ML VIAL IV SCH ×3 (11:42→23:51)
[2019-07-17] MEDS: DOCUSATE SODIUM 100 MG CAP PO SCH ×2 (11:42→21:15)
[2019-07-17] MEDS: LOSARTAN POTASSIUM 50 MG TAB PO SCH (11:42)
[2019-07-17] MEDS: carvediloL 6.25 MG TAB PO SCH ×2 (11:43→21:17)
[2019-07-17] MEDS: MULTIVITAMIN TAB PO SCH (11:43)
[2019-07-17] MEDS: ACETAMINOPHEN 500 MG TAB PO SCH ×2 (13:54→21:17)
[2019-07-17] MEDS: CEFAZOLIN 2000MG 2,000 MG/15 ML SYR IV SCH ×2 (13:54→22:31)
[2019-07-17] MEDS: SODIUM CHLORIDE 0.9% 1000ML 1,000 ML IV SCH ×2 (13:55→23:50)
[2019-07-17] MEDS ORDERED: ALLOPURINOL 300 MG TAB PO SCH (21:00)
[2019-07-17] MEDS ORDERED: SENNA 8.6 MG TAB PO SCH (21:00)
[2019-07-18 05:48] LABS: Hematocrit (blood only) 34.9 % (42-52); Hemoglobin 11.7 g/dL (14.0-18.0); Immature Granulocytes # (auto) 0.03 K/uL (0.00-0.02); Immature Granulocytes % (auto) 0.2 %; Lymphocytes # (auto) 1.16 K/uL (1.2-3.4); Lymphocytes % (auto) 9.3 %; Mean Corpuscular Hemoglobin 32.9 pg (25-34); Mean Corpuscular Hgb Conc 33.5 g/dL (32-36); Mean Platelet Volume 9.2 fL (7.4-10.4); Monocytes # (auto) 0.84 K/uL (0.11-0.59); Monocytes % (auto) 6.7 %; Neutrophils # (auto) 10.45 K/uL (1.4-6.5); Neutrophils % (auto) 83.8 %; Platelet Count 161 K/uL (130-400); RDW Coefficient of Variation 13.8 % (11.5-14.5); RDW Standard Deviation 49.3 fL (36.4-46.3); Red Blood Count 3.56 M/uL (4.7-6.1); White Blood Count 12.48 K/uL (4.8-10.8)
[2019-07-18 06:15] LABS: BUN Creatinine Ratio 17.7 (10-20); Calcium 8.3 mg/dl (8.5-10.1); Creatinine Clr Calc Pharmacy 38.3 ml/min; Est GFR (African American) 41.4; Est GFR (Non-African American) 35.8; Potassium 4.2 mmol/L (3.5-5.1)
[2019-07-18] MEDS: ACETAMINOPHEN 500 MG TAB PO SCH (06:16)
[2019-07-18] MEDS: KETOROLAC TROMETHAMINE 15 MG/ML VIAL IV SCH (06:17)
[2019-07-18] MEDS: carvediloL 6.25 MG TAB PO SCH (08:40)
[2019-07-18] MEDS: DOCUSATE SODIUM 100 MG CAP PO SCH (08:40)
[2019-07-18] MEDS: LOSARTAN POTASSIUM 50 MG TAB PO SCH (08:41)
[2019-07-18] MEDS: MULTIVITAMIN TAB PO SCH (08:41)
[2019-07-18] MEDS ORDERED: RIVAROXABAN 20 MG TAB PO SCH (09:00)
--- NOTE | 2019-07-18 09:13 | Orthopedic Progress Note ---
Date of Service July 18, 2019 Assessment & Plan (1) Osteoarthritis of right hip: Overall is doing very well. Is not having any pain in the right hip. He has not been ambulating yet. He will be seen by physical therapy this morning for ambulation and range of motion exercises. If he is doing okay he can be discharged home. He will follow-up with orthopedics in 2 weeks. He already has some oxycodone at home for pain. He is on Xarelto for DVT prophylaxis. Present on Admission?: Yes Subjective Jacob was seen and examined at bedside this morning. Overall is doing very well. He is not having any pain in the right hip. He has not been up and ambulating at all yet. He has not gone to the bathroom. He still some numbness in his quad, but he has good strength. He has no complaints. Physical Exam Musculoskeletal: On physical examination of the right hip, the Amber VAC dressing is to suction. His leg lengths are equal. He is active dorsi flexion plantarflexion of his right ankle. He has some numbness around his right quad but he is able to flex his quad easily. Results & Data Vital Signs (Past 12 Hours) Vital Signs Temp Pulse Resp BP Pulse Ox 07/18/19 08:38 65 127/75 07/18/19 07:18 36.3 C L 60 15 124/62 97 07/18/19 03:10 36.4 C L 61 18 133/68 97 07/17/19 23:15 36.6 C 62 18 121/76 95 07/17/19 21:13 65 118/73 Laboratory Results H & H 06/16/19 07/18/19 Range/Units 12:54 05:24 Hgb 12.8 L 11.7 L (14.0-18.0) g/dL Hct 37.9 L 34.9 L (42-52) % Coagulation 06/16/19 Range/Units 12:54 INR 1.4 H (0.9-1.1) Diagnostic Findings Postoperative x-rays of the right hip show the prosthesis to be in anatomic alignment without any evidence of fracture, dislocation, or loosening. PG Care Time/CCT Total # of Minutes Spent Total Time Spent with Patient: Total time spent is greater than 50% in coordination of care (as documented) at patient's floor/unit and/or counseling patient:
--- NOTE | 2019-07-21 16:21 | Discharge Summary ---
Date of Service July 21, 2019 Admission HPI Per Admitting Provider Jacob is a pleasant 79-year-old male who is been dealing with chronic increasing right hip and groin pain. He gets stabbing sensations when he goes up from a seated position. X-rays and clinical examination have been diagnostic for primary osteoarthritis of the right hip. After failing conservative treatment, he has elected to proceed with a right total hip arthroplasty. Principal Diagnosis Right total hip arthroplasty Discharge Data Allergies Allergy/AdvReac Type Severity Reaction Status Date / Time coffee (Coffea arabica) Allergy Mild SINUS Verified 07/17/19 05:53 CONGESTION chocolate flavor AdvReac Mild SINUS Verified 07/17/19 05:53 CONGESTION WITH CHOCOLATE Consultations 07/18/19 08:00 Consult Case Management - Discharge Planning Routine Procedures Performed Operation Date: 07/17/19 07:00 Actual Procedures p Right Anterior Total Hip Arthroplasty(Right) - Keshav Mckeon DO Ordered Studies 07/17/19 07:00 FL fluoroscopy <1hr Routine FL hip RT 1V Routine Hospital Course (1) Osteoarthritis of right hip: On July 18, 2019 Jacob arrived at [facility] in the hospital and underwent a right anterior total hip arthroplasty without complication. He had a spinal anesthetic. Postoperatively he was started on Xarelto for DVT prophylaxis and discharged to general orthopedic floors. His hospital course is uneventful. On postop day #1 his H&H was stable and his pain was well controlled. He was able to ambulate well with physical therapy. He was then discharged home. He will follow-up with orthopedics in 2 weeks. Total Time Total Time Spent Total Time Spent (In Minutes): 20 Discharge Plan Discharge Items Patient Disposition: Home - Self-Care Reason For Visit: Right Hip Degenerative Joint Disease Discharge Diagnosis: Right total hip arthroplasty Activity: As commented below Non-emergency contact: Surgeon Call non-emergency contact if: your wound has increased redness and your wound has increased drainage Follow-up/Referrals: Jc Salinas [Primary Care Provider] - Diet: Regular Addtl Attending Provider Instructions: Activity and Therapy Recommendations: * If you are using [facility] then therapy will be provided at your home until they feel you have accomplished all of your goals. * If you are using [facility] then Physical Therapy will be provided until they feel you are ready to start Outpatient Physical Therapy. * If you are not using home therapy then Outpatient Physical Therapy should start about 3-5 days from your day of surgery. Therapy will last about 6-10 weeks * You were shown a series of exercises in the hospital. Do these exercises three times each day including the exercises you were shown in physical therapy. * Get up and walk several times each day.~ For the first four weeks, try not to stand or walk for more than one hour at a time. If you do stand or walk for more than one hour, you will not hurt anything, but your leg will likely swell.~~ * As you feel comfortable, you may change from the walker or crutches to a cane and~then to independent walking. Medications: * Narcotic You will likely be sent home from the hospital with a prescription for the narcotic pain medication that worked best throughout your stay. * Aspirin Most patients will be required to take Aspirin 81mg twice a day for 6 weeks after surgery. This is obtained [id number] and a prescription is not necessary. * Other medications may be prescribed for specific circumstances. If you have any questions, please call the office at . * Resume previous home medications unless otherwise instructed TEDs/Elastic Stockings: The white elastic stockings help limit swelling and prevent blood clots from forming in your legs. The more you wear them, the more they work. Wear them for six weeks. Dressing Care: You will likely have a purple VAC dressing after surgery. This dressing will keep the incision dry and promote early healing. After about 7 days the batteries will wear out and the VAC will lose suction. Simply remove the dressing at that time and throw everything away, including the small suction machine. Then, you may leave the ana lilia open to air or cover them with a dry dressing so they do not rub on your pants. The ana lilia will be removed at your 2 week follow-up appointment. Showering: You may shower immediately with the purple VAC dressing. Let the shower spray hit your opposite side and slowly pat the plastic dry. Do not soak the dressing. After the dressing is removed you may shower normally with the ana lilia exposed. Let soapy water run over the ana lilia and pat them dry. Things To Watch For: * Drainage from the incision site that occurs more than one week after your surgery. * Increased redness at the incision site. * Fever above 102 degrees Fahrenheit. * Unusual chest pain or shortness of breath. * Call [facility] at with any of the above problems Follow-Up Visit: Follow-up with Dr. Mckeon 2-3 weeks after your day of surgery. An appointment was probably scheduled when you signed-up for surgery in the office. If you have any questions call Office Instructions: More detailed instructions as well as Frequently Asked Questions were provided in a folder by our office when you signed-up for surgery. Please review these instructions when you get home. If you have any further questions or concerns, please feel free to call the office at [phone] Pending Studies at Discharge: No Stand-Alone Forms: My [facility], Smoking Cessation Medications and DC Order Prescriptions: Continued ascorbic acid (vitamin C) [Vitamin C] 1,000 mg Tablet 1 g PO BID RF: 0 carvedilol 6.25 mg tablet 6.25 mg PO BID RF: 0 allopurinol 300 mg tablet 300 mg PO QPM RF: 0 losartan 100 mg tablet 100 mg PO QAM RF: 0 cholecalciferol (vitamin D3) [Vitamin D3] 1,000 unit Capsule 1,000 unit PO BID RF: 0 Xarelto 20 mg tablet 20 mg PO QAM RF: 0 turmeric 400 mg Capsule 400 mg PO QAM RF: 0 Discharge Orders: Discharge Order (Routine); Ordered 07/18/19 Ordered By: Keshav Barroso/Other Patient Handouts: Surgery Prevent DVT After Admission Data Admit Date/Time: 07/17/19 09:01 Attending Provider: Keshav Mckeon Admit Provider: Keshav Mckeon Primary Care Provider: Jc Salinas Other Interventions: Discharge Summary Assessment (RN) Last Done: 07/18/19 09:54 DC Date/Time DO NOT enter until pt leaves facility: 07/18/19 11:03
== END 2019-07-18 11:03 | disposition home or self-care (01) | DRG 470 ==
LOC: ASU 04:51 → 3E 09:01